=== PATIENT | female | born 1950 | race Caucasian/White ===

== ENCOUNTER → 2016-08-17 | Outpatient (CLI) | payer BC, OTHER ==
[~2016-08-17] MED LIST: OXYC-57 PO; TAMS0.4C38 PO; WARF5TAB90 PO
--- NOTE | 2016-08-17 14:42 | DIAGNOSTIC IMAGING REPORT ---
RIGHT FOOT MIN 3 VIEWS CLINICAL HISTORY: RIGHT FOOT PAIN Right pain COMPARISON: None. DISCUSSION: The bones and joint spaces appear intact. There is no evidence of fracture, dislocation or bony disease. There is no evidence for soft tissue swelling. IMPRESSION: Negative study. Electronically signed by: Roberto Cohn M.D. 08/17/2016 2:40 PM Dictated Date/Time: 08/17/2016 2:39 PM
== END | disposition home or self-care (01) ==
LOC: C.RDSM 14:28
PROVIDERS: ATTEND Internal Medicine
DX: M79.671 Pain in right foot (principal)

== ENCOUNTER 2018-01-30 19:39 | Emergency (ER) | payer BC, OTHER ==
[~2018-01-30] VITALS: Ht 157.5 cm; Wt 66.0 kg
[2018-01-30 19:44] VITALS: TEMP 36.5; Ht 157.5 cm; Wt 66.0 kg
[2018-01-30 20:23] LABS: HEMATOCRIT 39.8 % (37-47); HEMOGLOBIN 13.8 g/dL (12.0-16.0); MEAN CELL VOLUME 82.4 fL (80-100); MEAN CORPUSCULAR HEMOGLOBIN 28.6 pg (25-34); MEAN CORPUSCULAR HGB CONC 34.7 g/dl (32-36); MEAN PLATELET VOLUME 11.5 fL (7.4-10.4); PLATELET COUNT 267 K/uL (130-400); RED CELL DISTRIBUTION WIDTH CV 12.3 % (11.5-14.5); RED CELL DISTRIBUTION WIDTH SD 36.9 fL (36.4-46.3); WHITE BLOOD COUNT 8.63 K/uL (4.8-10.8)
--- NOTE | 2018-01-30 20:30 | DIAGNOSTIC IMAGING REPORT ---
HEAD WITHOUT CONTRAST (CT) CLINICAL HISTORY: 68 years-old Female presenting with dizziness/ slurred speech one hour ago. TECHNIQUE: Multidetector CT imaging of the head was performed without the use of intravenous contrast. IV contrast: None. A dose lowering technique was used consistent with the principles of ALARA (as low as reasonably achievable). COMPARISON: None. CT DOSE (mGy.cm): The estimated cumulative dose is 638.56 mGycm. FINDINGS: Senior Software Quality Engineer topogram: Unremarkable. Ventricles and sulci normal in size. Brain parenchyma normal in appearance with preserved barnes-white differentiation. No mass effect or midline shift. No hemorrhage or acute territorial infarct. No extra-axial fluid collection. Paranasal sinuses and mastoid air cells clear. Calvarium intact. IMPRESSION: 1. No acute intracranial abnormality. Electronically signed by: Quintin Chahal M.D. 01/30/2018 8:28 PM Dictated Date/Time: 01/30/2018 8:27 PM
[2018-01-30 20:34] LABS: INR 0.9 (0.9-1.1); PTT PATIENT 25.4 SECONDS (21.0-31.0)
--- NOTE | 2018-01-30 20:53 | EMERGENCY ROOM VISIT NOTE ---
History Report prepared by Adilson: Zuly Casas Under the Supervision of: Dr. Jose Payan M.D. First contact with patient: 20:20 Chief Complaint: DIZZY Stated Complaint: SUDDEN DIZZINESS, CHILLS, BLURRED VISION History of Present Illness The patient is a 68 year old female who presents to the Emergency Room with complaints of an episod eof severe dizziness beginning 1 hour and 20 minutes ago blurry, mouth dry, shaky, "slow motion" couldnt keep scooter open, laid scooter down, fell onto scooter couldnt get up Did not lose consciousness R eye felt twitchy Mild pressure at temples very naseous and disoriented still, vision resolved still dizzy/unsteady able to walk in fine denies weakness, numbness, or trouble speaking numbness in lips driving a motorized scooter down [address] when she had am extremely quick onset of blurred vision and dizziness 1 hour and 20 minutes ago. No speech issues, no stroke symptoms Dizzy, weak, blurred visions, cold chills Was on Coumadin following bad leg break and plate DVT, no medications dizziness worsens when moving head Denies any medical problems Never taken blood pressure medicine, BP usually on low side Source of History: patient, spouse/significant other Review of Systems See HPI for pertinent positives and negatives. A total of ten systems were reviewed and were otherwise negative. Past Medical & Surgical Medical Problems: (1) Osteoporosis Family History No pertinent family history stated. Social History Smoking Status: Never Smoker Smokeless Tobacco Use: No Alcohol Use: occasionally Drug Use: none Marital Status: Housing Status: lives with significant other Occupation Status: employed Current/Historical Medications Scheduled PRN Meclizine Hcl (Meclizine Hcl), 1 TAB PO TID PRN for Dizziness or Vertigo Allergies Coded Allergies: Penicillins (Verified Allergy, Intermediate, HIVES, 05/12/15) tolerated keflex and ancef no problem 2015 Physical Exam Vital Signs Date Time Temp Pulse Resp B/P (MAP) Pulse Ox O2 Delivery O2 Flow Rate FiO2 01/30/18 22:49 66 16 171/76 99 Room Air 01/30/18 20:53 66 18 176/80 98 Room Air 01/30/18 20:02 62 01/30/18 19:57 67 18 202/85 98 Room Air 01/30/18 19:44 36.5 62 20 202/75 98 Room Air Physical Exam GENERAL: Awake, alert, well-appearing, in no distress HENT: Normocephalic, atraumatic. Oropharynx unremarkable. EYES: Normal conjunctiva. Sclera non-icteric. NECK: Supple. No nuchal rigidity. RESPIRATORY: Clear to auscultation. No wheezes. Normal respiratory effort. CARDIAC: Normal rate. Normal rhythm. Extremities warm and well perfused. GI: Soft, non-distended. No tenderness to palpation. No rebound or guarding. No masses. RECTAL: Deferred. MUSCULOSKELETAL: Atraumatic. Chest examination reveals no tenderness. LOWER EXTREMITIES: Calves are equal size bilaterally and non-tender. No edema NEURO: Normal sensorium. No sensory or motor deficits noted. No facial droop. No aphasia, no dysarthria, no slurred speech, no ataxia. Cranial nerves 2-12 grossly intact. [place]-Hallpike negative. SKIN: Warm and dry. No rash or jaundice noted. Medical Decision & Procedures ER Provider Diagnostic Interpretation: Radiology results as stated below per my review and radiologist interpretation: HEAD WITHOUT CONTRAST (CT) CLINICAL HISTORY: 68 years-old Female presenting with dizziness/ slurred speech one hour ago. TECHNIQUE: Multidetector CT imaging of the head was performed without the use of intravenous contrast. IV contrast: None. A dose lowering technique was used consistent with the principles of ALARA (as low as reasonably achievable). COMPARISON: None. CT DOSE (mGy.cm): The estimated cumulative dose is 638.56 mGycm. FINDINGS: Records Tech topogram: Unremarkable. Ventricles and sulci normal in size. Brain parenchyma normal in appearance with preserved barnes-white differentiation. No mass effect or midline shift. No hemorrhage or acute territorial infarct. No extra-axial fluid collection. Paranasal sinuses and mastoid air cells clear. Calvarium intact. IMPRESSION: 1. No acute intracranial abnormality. Electronically signed by: Quintin Chahal M.D. 01/30/2018 8:28 PM Dictated Date/Time: 01/30/2018 8:27 PM MRA NECK COMBO CLINICAL HISTORY: 68 years-old Female presenting with dizziness, nausea, blurred vision, headache, symptoms began this evening, fall but no head trauma. TECHNIQUE: MR angiography of the neck was performed before and after the administration of intravenous contrast. 3-D volumetric and/or maximum intensity projection (MIP) images were subsequently reconstructed for review. IV contrast: 6.6 mL of Gadavist. Stenosis measurements were based on NASCET-like criteria. COMPARISON: None. FINDINGS: Image quality is limited by suboptimal postcontrast imaging. The contrast bolus was not directed despite a second attempt at injection. Angiography assessment made based on noncontrast imaging. Localizer images: Unremarkable. Aortic arch: Not included within the [id number]. Innominate artery: Grossly patent. Right common carotid artery: Patent. Right internal and external carotid arteries: Right carotid bifurcation patent. Right internal and external carotid arteries widely patent. Left common carotid artery: Patent. Left internal and external carotid arteries: Left carotid bifurcation patent. Left internal and external carotid arteries widely patent. Left subclavian artery: Grossly patent. Vertebral arteries: Codominant vertebral arteries. Origins of the vertebral arteries not well assessed. Remainder of the courses of the bilateral vertebral arteries grossly patent. Other: Limited intracranial evaluation grossly normal. IMPRESSION: 1. Technique degraded by nondiagnostic postcontrast imaging. Based on noncontrast imaging, no dissection, significant stenosis, or focal vessel occlusion. Electronically signed by: Quintin Chahal M.D. 01/30/2018 10:34 PM Dictated Date/Time: 01/30/2018 10:29 PM MRA HEAD WITHOUT CONTRAST CLINICAL HISTORY: 68 years-old Female presenting with dizziness, nausea, blurred vision, headache, symptoms began this evening, fall without head trauma. TECHNIQUE: MR angiography of the head was performed without the use of intravenous contrast using 3-D [id number] technique. 3-D volumetric and/or maximum intensity projection (MIP) images were subsequently reconstructed for review. IV contrast: None. COMPARISON: Noncontrast CT head from earlier today. FINDINGS: Anterior circulation: Intracranial portions of the internal carotid arteries patent to the level of the termini. A laterally projecting 1 mm blister aneurysm is suspected in the paraclinoid region of the right ICA with an additional similar-appearing 1 mm blister aneurysm in the cavernous segment. Anterior and middle cerebral arteries patent. Anterior communicating artery patent. Posterior circulation: Left dominant vertebral artery. Intradural portions of the vertebral arteries patent. Posterior inferior cerebellar arteries patent. Basilar artery patent. Anterior inferior cerebellar arteries patent. Right superior cerebellar artery patent. Left superior cerebellar artery hypoplastic or aplastic. Posterior cerebral arteries patent patent with a origin of the left PUBLISHING EDITOR. Right posterior communicating artery hypoplastic. IMPRESSION: 1. 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 These are of doubtful clinical significance regarding the patient's presentation. No focal vessel occlusion or significant stenosis. Electronically signed by: Quintin Chahal M.D. 01/30/2018 10:03 PM Dictated Date/Time: 01/30/2018 9:58 PM BRAIN WITHOUT CONTRAST CLINICAL HISTORY: 68 years-old Female presenting with dizziness/vertigo, sudden onset. TECHNIQUE: Multisequence, multiplanar MR imaging of the brain was performed without the use of intravenous contrast. IV contrast: None. COMPARISON: Noncontrast MR head performed earlier today. FINDINGS: Localizer images: Unremarkable. Ventricles and sulci normal in size. Brain parenchyma normal in appearance with preserved barnes-white differentiation. No mass effect or midline shift. No restricted diffusion to suggest acute ischemia. No hemorrhage. No extra-axial fluid collection. T2 skull base flow voids preserved. Postcontrast imaging was not performed. Bone marrow signal intensity within the calvarium within normal limits. Trace fluid in right mastoid air cells. IMPRESSION: 1. No acute intracranial abnormality. Electronically signed by: Quintin Chahal M.D. 01/30/2018 10:08 PM Dictated Date/Time: 01/30/2018 10:05 PM Laboratory Results 01/30/18 20:04 01/30/18 20:04 Test 01/30/18 20:04 01/30/18 22:57 Red Blood Count 4.83 M/uL (4.2-5.4) Mean Corpuscular Volume 82.4 fL (80-100) Mean Corpuscular Hemoglobin 28.6 pg (25-34) Mean Corpuscular Hemoglobin Concent 34.7 g/dl (32-36) RDW Standard Deviation 36.9 fL (36.4-46.3) RDW Coefficient of Variation 12.3 % (11.5-14.5) Mean Platelet Volume 11.5 fL (7.4-10.4) Prothrombin Time 9.8 SECONDS (9.0-12.0) Prothromb Time International Ratio 0.9 (0.9-1.1) Activated Partial Thromboplast Time 25.4 SECONDS (21.0-31.0) Partial Thromboplastin Ratio 1.0 Anion Gap 8.0 mmol/L (3-11) Est Creatinine Clear Calc Drug Dose 53.0 ml/min Estimated GFR () 74.2 Estimated GFR (Non- 64.0 BUN/Creatinine Ratio 24.2 (10-20) Calcium Level 9.6 mg/dl (8.5-10.1) Total Bilirubin 0.4 mg/dl (0.2-1) Aspartate Amino Transf (AST/SGOT) 20 U/L (15-37) Alanine Aminotransferase (ALT/SGPT) 37 U/L (12-78) Alkaline Phosphatase 85 U/L (45-117) Troponin I < 0.015 ng/ml (0-0.045) Total Protein 8.5 gm/dl (6.4-8.2) Albumin 4.2 gm/dl (3.4-5.0) Globulin 4.3 gm/dl (2.5-4.0) Albumin/Globulin Ratio 1.0 (0.9-2) Thyroid Stimulating Hormone (TSH) 2.380 uIu/ml (0.300-4.500) Urine Color YELLOW Urine Appearance CLEAR (CLEAR) Urine pH 7.0 (4.5-7.5) Urine Specific [place] 1.019 (1.000-1.030) Urine Protein NEG (NEG) Urine Glucose (UA) NEG (NEG) Urine Ketones 1+ (NEG) Urine Occult Blood NEG (NEG) Urine Nitrite NEG (NEG) Urine Bilirubin NEG (NEG) Urine Urobilinogen NEG (NEG) Urine Leukocyte Esterase SMALL (NEG) Urine WBC (Auto) 1-5 /hpf (0-5) Urine RBC (Auto) 0-4 /hpf (0-4) Urine Hyaline Casts (Auto) 0 /lpf (0-5) Urine Epithelial Cells (Auto) 10-20 /lpf (0-5) Urine Bacteria (Auto) NEG (NEG) Laboratory results reviewed by me Medications Administered Medications (Trade) Dose Ordered Sig/Sunita Route Start Time Stop Time Status Last Admin Dose Admin Meclizine HCl (Antivert Tab) 25 mg NOW STAT PO 01/30/18 21:25 01/30/18 21:26 DC 01/30/18 22:56 25 MG ECG Per My Interpretation Indication: other (hypertension) Rate (beats per minute): 63 Rhythm: normal sinus Findings: no ectopy, other (normal intervals. no ST segment elevation ) Comparison ECG Date: 04/29/15 Change: no significant change ED Course 2020: The patient was evaluated in room B7. A complete history and physical exam was performed. 2124: Ordered Meclizine HCl 25 mg PO. 2131: I attempted to reevaluate the patient, they were in MRI. 2140: I reevaluated and update the patient. 2304: I reevaluated the patient. Discussed results and discharge instructions: she verbalized understanding and agreement. The patient is ready for discharge. Medical Decision Differential diagnosis: Etiologies such as benign positional vertigo, dehydration, hypovolemia, anemia, tumor, infection, hypoglycemia, electrolyte abnormalities, cardiac sources, intracerebral event, toxicologic, neurologic, as well as others were entertained. Patient presents with sudden onset of dizziness with nausea earlier. No trauma. Normal blood thinners or aspirin. CT the head is unremarkable. No focal weakness. Does not seem to be acute stroke but possibly hypertension emergency versus TIA. Non-provocable symptoms. Less likely peripheral vertigo. Onset around 7 PM. NIH of 0 now. Could be a possible small stroke and MRI MRA of the brain was completed. Not a TPA candidate due to minimal symptoms now. Laboratory studies grossly unremarkable. MRI and MRA without acute findings when her symptoms. She was informed of the small aneurysm noted on the MRA-do not believe related to issue now. She is feeling improved upon return from MRI with minimal symptoms. Ambulatory here. Eating and drinking. Blood pressure improving. Does not seem consistent with stroke. We will give some Antivert for possible peripheral vertigo. Recent URI and could be related viral labyrinthitis. She is feeling improved and wished for discharge home. Feel this is reasonable. Doubt hypertensive emergency. Recommend follow-up in the next several days with her primary care physician to discuss her blood pressure (may have been situational) and this episode. Discussed return criteria and she is agreeable with this. Medication Reconcilliation Current Medication List: was personally reviewed by me Blood Pressure Screening Patient's blood pressure: Elevated blood pressure Blood pressure disposition: Referred to PCP Impression Primary Impression: Dizziness Additional Impression: Vertigo Scribe Attestation The scribe's documentation has been prepared under my direction and personally reviewed by me in its entirety. I confirm that the note above accurately reflects all work, treatment, procedures, and medical decision making performed by me. Departure Information Dispostion Home / Self-Care Prescriptions Meclizine Hcl (MECLIZINE HCL) 25 Mg Tab 1 TAB PO TID Y for Dizziness or Vertigo for 10 Days, #30 TAB Prov: Jose Payan M.D. 01/30/18 Referrals No Doctor, Assigned (PCP) Forms HOME CARE DOCUMENTATION FORM, IMPORTANT VISIT INFORMATION Patient Instructions My [facility] [place] [facility] Additional Instructions Please maintain good hydration. If you begin to experience severe symptoms, please sit down to prevent falls or other accidents. Would recommend close follow-up in the next several days with your primary care physician. Would also discuss with them your blood pressure which has been elevated today but have a recheck to see if this is a continual issue. Will prescribe you some vertigo medicine that you can try if you have recurrence of symptoms. Imaging today does not show any signs of an acute stroke or brain lesion. However if you develop new or worsening symptoms please return here for reevaluation at any time. Problem Qualifiers
[2018-01-30 21:03] LABS: ALBUMIN 4.2 gm/dl (3.4-5.0); ALKALINE PHOSPHATASE 85 U/L (45-117); ALT/SGPT 37 U/L (12-78); AST/SGOT 20 U/L (15-37); BLOOD UREA NITROGEN 22 mg/dl (7-18); CALCIUM 9.6 mg/dl (8.5-10.1); CARBON DIOXIDE 26 mmol/L (21-32); CREATININE 0.93 mg/dl (0.60-1.20); GLUCOSE 107 mg/dl (70-99); POTASSIUM 3.9 mmol/L (3.5-5.1); SODIUM 138 mmol/L (136-145); TOTAL PROTEIN 8.5 gm/dl (6.4-8.2)
[2018-01-30] MEDS ORDERED: MECLIZINE HCL 25 MG TAB PO STA (21:25)
--- NOTE | 2018-01-30 22:04 | DIAGNOSTIC IMAGING REPORT ---
MRA HEAD WITHOUT CONTRAST CLINICAL HISTORY: 68 years-old Female presenting with dizziness, nausea, blurred vision, headache, symptoms began this evening, fall without head trauma. TECHNIQUE: MR angiography of the head was performed without the use of intravenous contrast using 3-D [id number] technique. 3-D volumetric and/or maximum intensity projection (MIP) images were subsequently reconstructed for review. IV contrast: None. COMPARISON: Noncontrast CT head from earlier today. FINDINGS: Anterior circulation: Intracranial portions of the internal carotid arteries patent to the level of the termini. A laterally projecting 1 mm blister aneurysm is suspected in the paraclinoid region of the right ICA with an additional similar-appearing 1 mm blister aneurysm in the cavernous segment. Anterior and middle cerebral arteries patent. Anterior communicating artery patent. Posterior circulation: Left dominant vertebral artery. Intradural portions of the vertebral arteries patent. Posterior inferior cerebellar arteries patent. Basilar artery patent. Anterior inferior cerebellar arteries patent. Right superior cerebellar artery patent. Left superior cerebellar artery hypoplastic or aplastic. Posterior cerebral arteries patent patent with a origin of the left MICROBIOLOGY TECHNICIAN. Right posterior communicating artery hypoplastic. IMPRESSION: 1. 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 These are of doubtful clinical significance regarding the patient's presentation. No focal vessel occlusion or significant stenosis. Electronically signed by: Quintin Chahal M.D. 01/30/2018 10:03 PM Dictated Date/Time: 01/30/2018 9:58 PM
--- NOTE | 2018-01-30 22:09 | DIAGNOSTIC IMAGING REPORT ---
BRAIN WITHOUT CONTRAST CLINICAL HISTORY: 68 years-old Female presenting with dizziness/vertigo, sudden onset. TECHNIQUE: Multisequence, multiplanar MR imaging of the brain was performed without the use of intravenous contrast. IV contrast: None. COMPARISON: Noncontrast MR head performed earlier today. FINDINGS: Localizer images: Unremarkable. Ventricles and sulci normal in size. Brain parenchyma normal in appearance with preserved barnes-white differentiation. No mass effect or midline shift. No restricted diffusion to suggest acute ischemia. No hemorrhage. No extra-axial fluid collection. T2 skull base flow voids preserved. Postcontrast imaging was not performed. Bone marrow signal intensity within the calvarium within normal limits. Trace fluid in right mastoid air cells. IMPRESSION: 1. No acute intracranial abnormality. Electronically signed by: Quintin Chahal M.D. 01/30/2018 10:08 PM Dictated Date/Time: 01/30/2018 10:05 PM
[2018-01-30] MEDS ORDERED: GADAVIST IV PRN (22:30)
--- NOTE | 2018-01-30 22:35 | DIAGNOSTIC IMAGING REPORT ---
MRA NECK COMBO CLINICAL HISTORY: 68 years-old Female presenting with dizziness, nausea, blurred vision, headache, symptoms began this evening, fall but no head trauma. TECHNIQUE: MR angiography of the neck was performed before and after the administration of intravenous contrast. 3-D volumetric and/or maximum intensity projection (MIP) images were subsequently reconstructed for review. IV contrast: 6.6 mL of Gadavist. Stenosis measurements were based on NASCET-like criteria. COMPARISON: None. FINDINGS: Image quality is limited by suboptimal postcontrast imaging. The contrast bolus was not directed despite a second attempt at injection. Angiography assessment made based on noncontrast imaging. Localizer images: Unremarkable. Aortic arch: Not included within the [id number]. Innominate artery: Grossly patent. Right common carotid artery: Patent. Right internal and external carotid arteries: Right carotid bifurcation patent. Right internal and external carotid arteries widely patent. Left common carotid artery: Patent. Left internal and external carotid arteries: Left carotid bifurcation patent. Left internal and external carotid arteries widely patent. Left subclavian artery: Grossly patent. Vertebral arteries: Codominant vertebral arteries. Origins of the vertebral arteries not well assessed. Remainder of the courses of the bilateral vertebral arteries grossly patent. Other: Limited intracranial evaluation grossly normal. IMPRESSION: 1. Technique degraded by nondiagnostic postcontrast imaging. Based on noncontrast imaging, no dissection, significant stenosis, or focal vessel occlusion. Electronically signed by: Quintin Chahal M.D. 01/30/2018 10:34 PM Dictated Date/Time: 01/30/2018 10:29 PM
[2018-01-30 22:49] VITALS: BP 171/76; PULSE 66; O2SAT 99
[2018-01-30] MEDS ORDERED: MECL1TAB42 PO (22:58)
== END 2018-01-30 23:10 | disposition home or self-care (01) ==
LOC: C.EDB 19:40
DX: R42 Dizziness and giddiness (principal); M81.0 Age-related osteoporosis without current pathological fracture; Z88.0 Allergy status to penicillin

== ENCOUNTER 2022-09-12 11:47 | Observation (INO) ==
--- NOTE | 2022-09-12 12:18 | Electrocardiogram Report ---
Test Reason : Blood Pressure : / mmHG Vent. Rate : 064 BPM Atrial Rate : 064 BPM P-R Int : 146 ms QRS Dur : 070 ms QT Int : 428 ms P-R-T Axes : 034 014 036 degrees QTc Int : 441 ms Normal sinus rhythm Diffuse Minor Nonspecific ST abnormality Abnormal ECG When compared with ECG of 30-JAN-2018 19:55, ST now depressed in Anterior leads Confirmed by Hector Valdes ([id number]) on 09/12/2022 12:18:20 PM Referred By: Confirmed By:Hector Valdes
[2022-09-12 12:41] LABS: Basophils # (auto) 0.11 K/uL (0-0.2); Hemoglobin 13.6 g/dl (12.0-16.0); Immature Granulocytes # (auto) 0.03 K/uL (0.01-0.20); Immature Granulocytes % (auto) 0.3 %; Lymphocytes # (auto) 2.11 K/uL (1.2-3.4); Lymphocytes % (auto) 19.2 %; Mean Corpuscular Hemoglobin 27.5 pg (25.0-34.0); Mean Corpuscular Hgb Conc 33.2 g/dL (32.0-36.0); Mean Corpuscular Volume 82.8 fL (80.0-100.0); Monocytes # (auto) 0.53 K/uL (0.11-0.59); Monocytes % (auto) 4.8 %; Neutrophils # (auto) 8.22 K/uL (1.40-6.50); Neutrophils % (auto) 74.7 %; Platelet Count 279 K/uL (130-400); RDW Coefficient of Variation 12.6 % (11.5-14.5); RDW Standard Deviation 38.4 fL (36.4-46.3); Red Blood Count 4.95 M/uL (4.20-5.40)
[2022-09-12 12:55] LABS: Albumin Level 4.4 gm/dl (3.4-5.0); Bilirubin,Total 0.5 mg/dl (0.2-1.0); Calcium 9.6 mg/dl (8.6-10.3); Partial Thromboplastin Time 28.1 Seconds (21.0-31.0); Potassium 4.1 mmol/L (3.5-5.1); Prothrombin Time 10.3 Seconds (9.0-12.0)
[2022-09-12 13:01] LABS: Albumin Globulin Ratio 1.3 (0.9-2); BUN Creatinine Ratio 15.6 (10-20); Creatinine Clr Calc Pharmacy 50.3 ml/min; Est GFR (African American) 75.1 ml/min; Est GFR (Non-African American) 64.8 ml/min; Globulin 3.5 gm/dl (2.5-4.0); Total Protein 7.9 gm/dl (6.0-8.3)
[2022-09-12 13:25] LABS: Troponin I High Sensitivity 416.9 pg/ml (0-14)
--- NOTE | 2022-09-12 13:31 | XRay Report ---
TWO VIEW CHEST CLINICAL HISTORY: Atypical chest pain. FINDINGS: PA and lateral chest radiographs are compared to study dated 08/17/2012. The cardiomediastina l silhouette is unremarkable. Chronic interstitial thickening is unchanged. The lungs and pleural sp aces are clear. There is no pneumothorax. The skeletal structures are osteopenic. The bony thorax carlos ears intact. Arthritic change is seen in the shoulders. IMPRESSION: No active disease in the chest. ACT 112: Negative or not required by law. Electronically signed by: Marcus Senior M.D. 09/12/2022 1:29 PM
--- NOTE | 2022-09-12 13:53 | Emergency Department Note ---
ED Visit Note Patient was triaged prior to this PA being stationed in triage for the day. Troponin was noted to be elevated and ECG was reviewed by myself and Dr. Santizo. Patient will be immediately placed into room and seen by provider. Repeat ECG and troponin were ordered. -
[2022-09-12] MEDS ORDERED: SODIUM CHLORIDE 0.9% 1000ML 1,000 ML IV ONE (14:05)
[2022-09-12] MEDS ORDERED: ASPIRIN CHEW 324 MG PO STA (14:05)
[2022-09-12] MEDS ORDERED: NITROGLYCERIN SL 0.4 MG/TAB TAB SL STA ×2 (14:05→16:46)
[2022-09-12] MEDS ORDERED: OPTIRAY 320 500ml IV ONE (14:27)
--- NOTE | 2022-09-12 15:15 | Electrocardiogram Report ---
Test Reason : Blood Pressure : / mmHG Vent. Rate : 062 BPM Atrial Rate : 062 BPM P-R Int : 156 ms QRS Dur : 078 ms QT Int : 452 ms P-R-T Axes : 062 006 028 degrees QTc Int : 458 ms Poor data quality, interpretation may be adversely affected Normal sinus rhythm Voltage criteria for left ventricular hypertrophy Diffuse Nonspecific ST abnormality Abnormal ECG When compared with ECG of 12-SEP-2022 11:58, No significant change was found Confirmed by Hector Valdes ([id number]) on 09/12/2022 3:15:00 PM Referred By: Confirmed By:Hector Valdes
--- NOTE | 2022-09-12 15:16 | CT Scan Report ---
CT ANGIOGRAM OF THE CHEST CLINICAL HISTORY: Atypical chest pain. COMPARISON STUDY: Chest x-ray dated 09/12/2022. TECHNIQUE: Following the IV administration of 107 cc of Optiray 320, CT angiogram of the chest was pe rformed from the upper abdomen to the thoracic inlet utilizing the pulmonary embolus protocol. Images are reviewed in the axial, sagittal, and coronal planes. 3-D MIPS images are created and assessed. I V contrast was administered without complication. A dose lowering technique was utilized adhering to the principles of ALARA. CT DOSE: 264.11 mGy.cm FINDINGS: Thyroid: Normal in size and heterogeneous in attenuation. Thoracic aorta: There is moderate atherosclerotic calcification of the thoracic aorta, which is thomas l in caliber and demonstrates standard 3-vessel arch anatomy. No dissection is seen. Pulmonary vasculature: The pulmonary trunk is normal in caliber. There are no filling defects identif ied in main, lobar, or segmental pulmonary branches to suggest pulmonary embolus. Heart: The heart is normal in size and without pericardial effusion. There are scattered coronary art adria calcifications. Lungs and pleural spaces: Diffuse peribronchial thickening suggests bronchitis/reactive air disease. Foci of air trapping are seen throughout both lungs. Mild groundglass changes noted at the right lung base. There is no pleural effusion. The trachea and central airways are clear. A 6 mm pleural-based nodule is seen in the superior segment of the right lower lobe along the major fissure on image #160. A 5 mm nodule in the lingula as seen on image #133, and a 3 mm pleural-based nodule in the left lowe r lobe along the major fissure as seen on image #180. Mediastinum: There is no mediastinal lymphadenopathy. Starr: There are calcified left hilar nodes. No hilar adenopathy is seen. Axillae: There is no axillary lymphadenopathy. Upper abdomen: A small hiatal hernia is noted. 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 Skeletal structures: The skeletal structures are osteopenic. Mild degenerative change is noted in the thoracic spine. No lytic or blastic bony lesions are seen. IMPRESSION: 1. There is no evidence of pulmonary embolus in the main, lobar, or segmental pulmonary arteries. 2. Diffuse peribronchial thickening suggests bronchitis/reactive airway disease. There is multifocal air trapping as well as mild groundglass change seen at the right lung base. Correlate clinically for evidence of a pneumonitis. 3. No pleural effusion is seen. 4. Low suspicion pulmonary and pleural-based nodules measure up to 6 mm. These are indeterminant and can be followed as per the Fleischner criteria. See below. 5. Additional findings as above. Please refer to below summary of Fleischner criteria recommendations for follow-up of incidental CT n odules (Kimberlee Law, Guidelines for management of small pulmonary nodules detected on CT scans: A sta tement from the Fleischner Society, Radiology 237: [phone].) SOLID NODULES Solitary nodule size: <6 mm * low risk patients: no follow-up needed * high risk patients: optional CT at 12 months Solitary nodule size: 6-8 mm * low risk patients: follow-up at 6-12 months, then consider further follow-up at 18-24 months * high risk patients: initial follow-up CT at 6-12 months and then at 18-24 months if no change Solitary nodule size: >8 mm * either low or high risk patients - consider follow-up CT at 3 months, and/or CT-PET, and/or biopsy Multiple nodules size: <6 mm * low risk patients: no routine follow-up * high risk patients: optional CT at 12 months Multiple nodules size: 6-8 mm * low risk patients: follow-up at 3-6 months, then consider further follow-up at 18-24 months * high risk patients: follow-up at 3-6 months, then at 18-24 months if no change Multiple nodules size: >8 mm * low risk patients: follow-up at 3-6 months, then consider further follow-up at 18-24 months * high risk patients: follow-up at 3-6 months, then at 18-24 months if no change Note: newly detected indeterminate nodule in persons 35 years of age or older. * low risk patients: minimal or absent history of smoking and/or other known risk factors * high risk patients: history of smoking or of other known risk factors (e.g. first degree relative with lung cancer, or exposure to asbestos, radon, uranium) * if a nodule up to 8 mm is partly solid or is ground glass further follow-up is required after 24 m onths to exclude possible slow growing adenocarcinoma (LUCY) SUBSOLID NODULES Solitary pure ground-glass nodule * nodule size <6 mm - no CT follow-up required * nodule size >=6 mm - follow-up CT at 6-12 months, then every 2 years until 5 years Solitary part-solid nodule * nodule size <6 mm - no CT follow-up required * nodule size >=6 mm - follow-up CT at 3-6 months. If unchanged, and solid component remains <6 mm, then annual follow-up for 5 years Multiple subsolid nodules * nodule size <6 mm - follow-up CT at 3-6 months, consider further follow-up at 2 and 4 years if sta ble * nodule size >=6 mm - follow-up CT at 3-6 months, subsequent management based on the most suspiciou s nodule(s) ACT 112: Negative or not required by law. Electronically signed by: Marcus Senior M.D. 09/12/2022 3:15 PM
[2022-09-12] MEDS ORDERED: Heparin IV Adult Wt-Based Low-Dose WITH Bolus Protocol IV STA (16:46)
--- NOTE | 2022-09-12 16:55 | Emergency Department Note ---
Impression & Plan Substernal chest pain, Elevated troponin, Elevated blood pressure reading, Abnormal EKG, Aneurysm of splenic artery ED Provider Note NAME: CHUY SHEPARD AGE: 72 SEX: F ARRIVES VIA: Walk-In INFORMANT: Patient ED PROVIDER(S): Antoni Santizo MD CHIEF COMPLAINT: Chest pain PLAN: Disposition: Admit MEDICAL DECISION MAKING: The patient is a pleasant 72-year-old woman with a past medical history of remote provoked DVT no longer on anticoagulation who presents to the emergency department accompanied by her for evaluation of 2 days of ongoing substernal chest pain/pressure worse with exertion with associated shortness of breath. The patient symptoms occur in the setting of recently starting Ibandronate for osteoporosis and she initially attributed the symptoms to indigestion related to this medication as her symptoms did show some improvement with Pepto-Bismol. However she is never experienced shortness of breath with minimal exertion she has and they were concerned. She denies any fevers, chills, new cough or congestion, GI or symptoms. They did both have COVID-19 in April but recovered uneventfully. Of note, the patient did arrive to emergency department during time of high volume, acuity and prolonged emergency department waiting times. Critical pathways initiated from triage. Initial EKG performed in triage did not demonstrate overt ST elevation though very subtle depressed ST segments anteriorly. WBC 11K nonspecific. H/H and platelets within normal limits. Chemistry without metabolic acidosis. Electrolytes and LFTs unremarkable. Initial high- sensitivity troponin was elevated at 416 with delta 2-hour high-sensitivity troponin 430. COVID-19 RNA, BETH test was negative. Patient was treated with aspirin and nitroglycerin and did report feeling the residual sensation of "indigestion" resolved. Given her history a CTA of the chest was performed and was negative for PE. Note is made of peribronchial thickening which may reflect residual findings related to COVID-19 infection in April incidental note is made of small splenic artery aneurysms.. Given her symptoms which are provoked with exertion with elevated troponin and subtle EKG changes heparin was ordered. The patient denies any prior history of GI bleeding or bleeding otherwise. They agree with plan for admission for further management. Case was discussed with Edith Yañez PAC with Dr. Singletary, [facility] hospitalist, who will evaluate the patient for admission. Triage Nursing notes reviewed and agree them. Prior/outside medical records reviewed Vital Signs: reviewed Differential diagnosis: Cardiac ischemia, aortic dissection, pulmonary embolism, pneumothorax, pneumonia, pericarditis, myocarditis, esophageal rupture, GERD, cholecystitis, pancreatitis, musculoskeletal, as well as other pathologies. ER treatment provided: See below. Diagnostics interpreted by me: ECG: Normal sinus rhythm, 64 bpm, no ectopy, subtle ST depression anteriorly no overt ST elevation. Cardiac Monitoring: An order for continuous cardiac monitoring was placed and demonstrated Normal sinus rhythm, 64 bpm, no ectopy. Laboratory studies: See below Imaging studies: See below Consultation(s): Edith Zacarias [facility] PAC with Dr. Singletary, [facility] hospitalist. HPI: The patient is a pleasant 72-year-old woman with a past medical history of remote provoked DVT no longer on anticoagulation who presents to the emergency department accompanied by her for evaluation of 2 days of ongoing substernal chest pain/pressure worse with exertion with associated shortness of breath. The patient symptoms occur in the setting of recently starting Ibandronate for osteoporosis and she initially attributed the symptoms to indigestion related to this medication as her symptoms did show some improvement with Pepto-Bismol. However she is never experienced shortness of breath with minimal exertion she has and they were concerned. She denies any fevers, chills, new cough or congestion, GI or symptoms. They did both have COVID-19 in April but recovered uneventfully. ROS: See above HPI for pertinent positives & negatives. A total of 10 systems reviewed and were otherwise negative. VITALS:See Below PHYSICAL EXAMINATION: GENERAL: Awake, alert, well-appearing, in no distress HENT: Normocephalic, atraumatic. Oropharynx with dry mucous membranes and otherwise unremarkable. EYES: Normal conjunctiva. Sclera non-icteric. NECK: Supple. No nuchal rigidity. FROM. No JVD. RESPIRATORY: Clear to auscultation. CARDIAC: Regular rate, normal rhythm. Extremities warm and well perfused. Pulses equal. ABDOMEN: Soft, non-distended. No tenderness to palpation. No rebound or guarding. No masses. RECTAL: Deferred. MUSCULOSKELETAL: Chest examination reveals no tenderness. The back is symmetrical on inspection without obvious abnormality. There is no CVA tenderness to palpation. No joint edema. LOWER EXTREMITIES: Calves are equal size bilaterally and non-tender. No edema. No discoloration. NEURO: Normal sensorium. No sensory or motor deficits noted. SKIN: No rash or jaundice noted. ED COURSE: Critical Care: I have personally spent greater than 75 minutes of critical care time in the direct management of this patient. This includes bedside care, interpretation of diagnostic studies, and testing, discussion with consultants, patient, and family members, and other required patient management activities. This 75 minutes is in excess of all separately billable procedures. 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; no previous echo History of DVT (deep vein thrombosis) x 2 2012 post op History of osteoporosis History of renal stone HLD (hyperlipidemia) Surgical History History of colonoscopy History of cystoscopy with stone extraction History of esophagogastroduodenoscopy (EGD) History of open reduction and internal fixation (ORIF) procedure RLE History of wisdom tooth extraction Family History Other No family history of adverse response to anesthesia Social History Smoking Status: Former smoker Second Hand Exposure: No; Hx Alcohol Use: No Hx Substance Use: No Preferred Language: [place] Communication Ability: Effective Shop Girl Required: No Beliefs That Will Affect Care: None Current Living Situation: Spouse Feels Safe at Home: Yes Assistive Devices: Crutches and Glasses Allergies Allergies Allergy/AdvReac Type Severity Reaction Status Date / Time Penicillins Allergy Intermediate HIVES Verified 09/12/22 17:08 Home Meds Home Medications Medication Instructions Recorded Confirmed atorvastatin 10 mg tablet 10 mg PO DAILY 09/12/22 09/12/22 ibandronate 150 mg tablet 150 mg PO MONTHLY 09/12/22 09/12/22 Results & Data (ED) Vital Signs Vital Signs - 24 hr 09/12/22 11:50 09/12/22 14:13 09/12/22 14:02 Temperature 36.8 C Temperature Source Temporal Artery Scan Pulse Rate 62 65 63 Pulse Rate from SpO2 Sensor Respiratory Rate 18 17 Blood Pressure 180/84 H Blood Pressure Mean 116 Pulse Oximetry 99 Oxygen Delivery Method Room Air Sepsis Recent Fever Within 48 Hours No Sepsis New/Unexplained Change in Mental Status No Sepsis Action Taken by Nursing No Action Required 09/12/22 14:43 09/12/22 14:43 09/12/22 15:00 Temperature Temperature Source Pulse Rate Pulse Rate from SpO2 Sensor 63 Respiratory Rate Blood Pressure 191/86 H 194/78 H Blood Pressure Mean 121 116 Pulse Oximetry 95 Oxygen Delivery Method Sepsis Recent Fever Within 48 Hours Sepsis New/Unexplained Change in Mental Status Sepsis Action Taken by Nursing 09/12/22 15:00 09/12/22 15:30 09/12/22 15:30 Temperature Temperature Source Pulse Rate 62 61 Pulse Rate from SpO2 Sensor 63 61 Respiratory Rate 15 24 Blood Pressure 187/93 H Blood Pressure Mean 124 Pulse Oximetry 98 96 Oxygen Delivery Method Sepsis Recent Fever Within 48 Hours Sepsis New/Unexplained Change in Mental Status Sepsis Action Taken by Nursing 09/12/22 16:00 09/12/22 16:00 09/12/22 16:00 Temperature Temperature Source Pulse Rate 67 Pulse Rate from SpO2 Sensor 67 Respiratory Rate 24 Blood Pressure 208/66 H 208/66 H Blood Pressure Mean 113 113 Pulse Oximetry 98 Oxygen Delivery Method Sepsis Recent Fever Within 48 Hours Sepsis New/Unexplained Change in Mental Status Sepsis Action Taken by Nursing 09/12/22 16:34 09/12/22 16:52 09/12/22 16:52 Temperature Temperature Source Pulse Rate 79 65 Pulse Rate from SpO2 Sensor 66 65 Respiratory Rate 23 29 H Blood Pressure 200/70 H Blood Pressure Mean 113 Pulse Oximetry 88 L 98 Oxygen Delivery Method Sepsis Recent Fever Within 48 Hours Sepsis New/Unexplained Change in Mental Status Sepsis Action Taken by Nursing 09/12/22 17:00 09/12/22 17:00 Temperature Temperature Source Pulse Rate 77 Pulse Rate from SpO2 Sensor 75 Respiratory Rate 30 H Blood Pressure 157/78 H Blood Pressure Mean 104 Pulse Oximetry 95 Oxygen Delivery Method Sepsis Recent Fever Within 48 Hours Sepsis New/Unexplained Change in Mental Status Sepsis Action Taken by Nursing Laboratory Data 09/12/22 12:00 09/12/22 12:00 Lab Results 09/12/22 09/12/22 09/12/22 Range/Units 12:00 12:00 12:00 WBC 11.00 H (4.8-10.8) K/ul RBC 4.95 (4.20-5.40) M/uL Hgb 13.6 (12.0-16.0) g/dl Hct 41.0 (37.0-47.0) % MCV 82.8 (80.0-100.0) fL MCH 27.5 (25.0-34.0) pg MCHC 33.2 (32.0-36.0) g/dL RDW Std Deviation 38.4 (36.4-46.3) fL RDW Coeff of David 12.6 (11.5-14.5) % Plt Count 279 (130-400) K/uL MPV 12.0 (9.4-12.4) fL Immature Gran % (Auto) 0.3 % Neut % (Auto) 74.7 % Lymph % (Auto) 19.2 % [place] % (Auto) 4.8 % Eos % (Auto) 0.0 % Baso % (Auto) 1.0 % Neut # (Auto) 8.22 H (1.40-6.50) K/uL Lymph # (Auto) 2.11 (1.2-3.4) K/uL [place] # (Auto) 0.53 (0.11-0.59) K/uL Eos # (Auto) 0.00 (0-0.50) K/uL Baso # (Auto) 0.11 (0-0.2) K/uL Immature Gran # (Auto) 0.03 (0.01-0.20) K/uL PT 10.3 (9.0-12.0) Seconds INR 1.0 (0.9-1.1) APTT 28.1 (21.0-31.0) Seconds PTT Ratio 1.0 Sodium 135 L (136-145) mmol/L Potassium 4.1 (3.5-5.1) mmol/L Chloride 102 (98-107) mmol/L Carbon Dioxide 25 (21-32) mmol/L Anion Gap 8 (3-11) BUN 14 (6-23) mg/dl Creatinine 0.90 (0.6-1.2) mg/dl Est Cr Clr Drug Dosing 50.3 ml/min Est GFR ( Amer) 75.1 ml/min Est GFR (Non-Af Amer) 64.8 ml/min BUN/Creatinine Ratio 15.6 (10-20) Glucose 142 H (70-99(Fasting)) mg/dl Calcium 9.6 (8.6-10.3) mg/dl Total Bilirubin 0.5 (0.2-1.0) mg/dl AST 24 (13-39) U/L ALT 27 (7-52) U/L Alkaline Phosphatase 76 (34-104) U/L Troponin I High Sens 416.9 H* (0-14) pg/ml Total Protein 7.9 (6.0-8.3) gm/dl Albumin 4.4 (3.4-5.0) gm/dl Globulin 3.5 (2.5-4.0) gm/dl Albumin/Globulin Ratio 1.3 (0.9-2) SARS-CoV-2, RNA, NAAT (NEGATIVE) 09/12/22 09/12/22 Range/Units 14:17 14:32 WBC (4.8-10.8) K/ul RBC (4.20-5.40) M/uL Hgb (12.0-16.0) g/dl Hct (37.0-47.0) % MCV (80.0-100.0) fL MCH (25.0-34.0) pg MCHC (32.0-36.0) g/dL RDW Std Deviation (36.4-46.3) fL RDW Coeff of David (11.5-14.5) % Plt Count (130-400) K/uL MPV (9.4-12.4) fL Immature Gran % (Auto) % Neut % (Auto) % Lymph % (Auto) % [place] % (Auto) % Eos % (Auto) % Baso % (Auto) % Neut # (Auto) (1.40-6.50) K/uL Lymph # (Auto) (1.2-3.4) K/uL [place] # (Auto) (0.11-0.59) K/uL Eos # (Auto) (0-0.50) K/uL Baso # (Auto) (0-0.2) K/uL Immature Gran # (Auto) (0.01-0.20) K/uL PT (9.0-12.0) Seconds INR (0.9-1.1) APTT (21.0-31.0) Seconds PTT Ratio Sodium (136-145) mmol/L Potassium (3.5-5.1) mmol/L Chloride (98-107) mmol/L Carbon Dioxide (21-32) mmol/L Anion Gap (3-11) BUN (6-23) mg/dl Creatinine (0.6-1.2) mg/dl Est Cr Clr Drug Dosing ml/min Est GFR ( Amer) ml/min Est GFR (Non-Af Amer) ml/min BUN/Creatinine Ratio (10-20) Glucose (70-99(Fasting)) mg/dl Calcium (8.6-10.3) mg/dl Total Bilirubin (0.2-1.0) mg/dl AST (13-39) U/L ALT (7-52) U/L Alkaline Phosphatase (34-104) U/L Troponin I High Sens 433.0 H* (0-14) pg/ml Total Protein (6.0-8.3) gm/dl Albumin (3.4-5.0) gm/dl Globulin (2.5-4.0) gm/dl Albumin/Globulin Ratio (0.9-2) SARS-CoV-2, RNA, NAAT NEGATIVE (NEGATIVE) Administered Medications Amlodipine Besylate (Amlodipine Besylate 5 Mg Tab) 5 mg PO QAM [facility] Stop: 10/12/22 19:14 Last Admin: 09/12/22 19:19 Dose: 5 mg Documented By: DEREJE Heparin Sodium/Dextrose (Heparin Sodium/Dextrose) 25,000 units in 500 mls @ 13 mls/hr IV .Q24H NILO; Protocol Stop: 10/12/22 17:14 Last Admin: 09/12/22 17:12 Dose: 650 units/hr, 13 mls/hr Documented By: HS Co-signed By: MUNDO Discontinued Medications Aspirin (Aspirin Chew 324 Mg) 324 mg PO NOW STA Stop: 09/12/22 14:06 Last Admin: 09/12/22 14:18 Dose: 324 mg Documented By: MELINDA Heparin Sodium (Porcine) (Heparin Sod (Porcine) 1000 Unit/Ml) 3,000 units IV NOW ONE Stop: 09/12/22 17:16 Last Admin: 09/12/22 17:12 Dose: 3,000 units Documented By: HS Co-signed By: MUNDO Heparin Sodium/Dextrose (Heparin Iv Adult Wt-Based Low-Dose With Bolus Protocol) 1 each IV NOW STA; Protocol Stop: 09/12/22 16:47 Last Admin: 09/12/22 19:03 Dose: Not Given Documented By: DEREJE Sodium Chloride (Nss 1000ml) 1,000 mls @ 999 mls/hr IV .Q1H1M ONE Stop: 09/12/22 15:05 Last Infusion: 09/12/22 18:47 Dose: 0 mls/hr Documented By: Admin: 09/12/22 15:37 Dose: 999 mls/hr Documented By: LINETTE Ioversol (Optiray 320 500ml) 107 ml IV ONCE ONE Stop: 09/12/22 14:28 Last Admin: 09/12/22 14:27 Dose: 107 ml Documented By: YURIDIA Nitroglycerin (Nitroglycerin Sl 0.4 Mg/Tab Tab) 0.4 mg SL NOW STA Stop: 09/12/22 14:06 Last Admin: 09/12/22 14:18 Dose: 0.4 mg Documented By: MELINDA Nitroglycerin (Nitroglycerin Sl 0.4 Mg/Tab Tab) 0.4 mg SL NOW STA Stop: 09/12/22 16:47 Last Admin: 09/12/22 16:58 Dose: 0.4 mg Documented By: LINETTE Imaging Data Radiologist's Impression: Chest X-Ray 09/12/22 11:54 TWO VIEW CHEST CLINICAL HISTORY: Atypical chest pain. FINDINGS: PA and lateral chest radiographs are compared to study dated 08/17/2012. The cardiomediastinal silhouette is unremarkable. Chronic interstitial thickening is unchanged. The lungs and pleural spaces are clear. There is no pneumothorax. The skeletal structures are osteopenic. The bony thorax appears intact. Arthritic change is seen in the shoulders. IMPRESSION: No active disease in the chest. ACT 112: Negative or not required by law. Electronically signed by: Marcus Senior M.D. 09/12/2022 1:29 PM Chest CTA 09/12/22 14:05 CT ANGIOGRAM OF THE CHEST CLINICAL HISTORY: Atypical chest pain. COMPARISON STUDY: Chest x-ray dated 09/12/2022. TECHNIQUE: Following the IV administration of 107 cc of Optiray 320, CT an giogram of the chest was performed from the upper abdomen to the thoracic inlet utilizing the pulmonary embolus protocol. Images are reviewed in the axial, sagittal, and coronal planes. 3-D MIPS images are created and assessed. IV contrast was administered without complication. A dose lowering technique was utilized adhering to the principles of ALARA. CT DOSE: 264.11 mGy.cm FINDINGS: Thyroid: Normal in size and heterogeneous in attenuation. Thoracic aorta: There is moderate atherosclerotic calcification of the thoracic aorta, which is normal in caliber and demonstrates standard 3-vessel arch anatomy. No dissection is seen. Pulmonary vasculature: The pulmonary trunk is normal in caliber. There are no filling defects identified in main, lobar, or segmental pulmonary branches to suggest pulmonary embolus. Heart: The heart is normal in size and without pericardial effusion. There are scattered coronary artery calcifications. Lungs and pleural spaces: Diffuse peribronchial thickening suggests bronchitis/reactive air disease. Foci of air trapping are seen throughout both lungs. Mild groundglass changes noted at the right lung base. There is no pleural effusion. The trachea and central airways are clear. A 6 mm pleural- based nodule is seen in the superior segment of the right lower lobe along the major fissure on image #160. A 5 mm nodule in the lingula as seen on image #133, and a 3 mm pleural-based nodule in the left lower lobe along the major fissure as seen on image #180. Mediastinum: There is no mediastinal lymphadenopathy. Starr: There are calcified left hilar nodes. No hilar adenopathy is seen. Axillae: There is no axillary lymphadenopathy. Upper abdomen: A small hiatal hernia is noted. 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 Skeletal structures: The skeletal structures are osteopenic. Mild degenerative change is noted in the thoracic spine. No lytic or blastic bony lesions are seen. IMPRESSION: 1. There is no evidence of pulmonary embolus in the main, lobar, or segmental pulmonary arteries. 2. Diffuse peribronchial thickening suggests bronchitis/reactive airway disease. There is multifocal air trapping as well as mild groundglass change seen at the right lung base. Correlate clinically for evidence of a pneumonitis. 3. No pleural effusion is seen. 4. Low suspicion pulmonary and pleural-based nodules measure up to 6 mm. These are indeterminant and can be followed as per the Fleischner criteria. See below. 5. Additional findings as above. Please refer to below summary of Fleischner criteria recommendations for follow- up of incidental CT nodules (H Ani, Guidelines for management of small pulmonary nodules detected on CT scans: A statement from the Fleischner Society, Radiology 237: [phone].) SOLID NODULES Solitary nodule size: <6 mm * low risk patients: no follow-up needed * high risk patients: optional CT at 12 months Solitary nodule size: 6-8 mm * low risk patients: follow-up at 6-12 months, then consider further follow-up at 18-24 months * high risk patients: initial follow-up CT at 6-12 months and then at 18-24 months if no change Solitary nodule size: >8 mm * either low or high risk patients - consider follow-up CT at 3 months, and/or CT-PET, and/or biopsy Multiple nodules size: <6 mm * low risk patients: no routine follow-up * high risk patients: optional CT at 12 months Multiple nodules size: 6-8 mm * low risk patients: follow-up at 3-6 months, then consider further follow-up at 18-24 months * high risk patients: follow-up at 3-6 months, then at 18-24 months if no change Multiple nodules size: >8 mm * low risk patients: follow-up at 3-6 months, then consider further follow-up at 18-24 months * high risk patients: follow-up at 3-6 months, then at 18-24 months if no change Note: newly detected indeterminate nodule in persons 35 years of age or older. * low risk patients: minimal or absent history of smoking and/or other known risk factors * high risk patients: history of smoking or of other known risk factors (e.g. first degree relative with lung cancer, or exposure to asbestos, radon, uranium) * if a nodule up to 8 mm is partly solid or is ground glass further follow-up is required after 24 months to exclude possible slow growing adenocarcinoma (LUCY) SUBSOLID NODULES Solitary pure ground-glass nodule * nodule size <6 mm - no CT follow-up required * nodule size >=6 mm - follow-up CT at 6-12 months, then every 2 years until 5 years Solitary part-solid nodule * nodule size <6 mm - no CT follow-up required * nodule size >=6 mm - follow-up CT at 3-6 months. If unchanged, and solid component remains <6 mm, then annual follow-up for 5 years Multiple subsolid nodules * nodule size <6 mm - follow-up CT at 3-6 months, consider further follow-up at 2 and 4 years if stable * nodule size >=6 mm - follow-up CT at 3-6 months, subsequent management based on the most suspicious nodule(s) ACT 112: Negative or not required by law. Electronically signed by: Marcus Senior M.D. 09/12/2022 3:15 PM Discharge Plan Visit Data Chief Complaint: Cardiac Assessment Stated Complaint: HERE TO HAVE HEART CHECKED, REF BY DOC ED Provider: Antoni Santizo Discharge Problem: Substernal chest pain, Elevated troponin, Elevated blood pressure reading, Abnormal EKG, Aneurysm of splenic artery Patient Disposition: Admitted As Inpatient Discharge Instructions Interventions: ED Discharge Assessment Last Done: 09/12/22 19:12
[2022-09-12] MEDS ORDERED: HEPARIN SOD (PORCINE) 1000 UNIT/ML IV ONE ×2 (17:03→17:15)
[2022-09-12] MEDS: HEPARIN SODIUM/DEXTROSE 25,000 UNITS/500 ML BAG IV SCH (17:12)
--- NOTE | 2022-09-12 18:00 | History & Physical Report ---
Date of Service September 12, 2022 Assessment & Plan (1) Chest tightness: (2) Elevated troponin: (3) HLD (hyperlipidemia): (4) Elevated blood pressure reading: Plan This is a 72-year-old female who has a significant past medical history of hyperlipidemia, traumatic DVT, cardiac murmur and osteoporosis who presents to ED secondary to chest tightness, BAPTISTE and GERD x 2 days. Patient was in her normal state of health until she took Boniva yesterday. She then began to feel acid reflux-like symptoms. When exercising yesterday she also noticed chest tightness with exertion as well as shortness of breath with exertion that resolves immediately with rest. These were not present prior to this, and day prior she [place] [employer] without any symptoms or rest. Her heartburn-like sensation feels like her prior episodes of reflux. Previously has also had allergy-like symptoms and difficulty with shortness of breath and biking in the springtime, but never chest tightness. Chest tightness\\elevated troponin Possible NSTEMI Need to rule out ACS Admit to PCU Cycle troponin EKG in a.m. Consult cardiology Echocardiogram, last in 2014 revealed grade 1 diastolic dysfunction, preserved EF, mild aortic valve sclerosis and mild TR Lipid panel and A1c in a.m. Continue heparin until ACS ruled out trial pepcid BID for dyspepsia, suspect GERD sx 2/2 boniva Chest tightness/pressure/BATPISTE ? 2/2 NSTEMI vs reactive airway disease/asthma Elevated BP reading suspect 2/2 anxiety in ED; however previous OP readings are in 130s-140s continue to trend will add norvasc 5mg as BP 204/94 HLD continue statin, may need increased dose if tolerating based on a.m. lipid panel pt with recent lipid panel in July with LDL [address]: Diffuse peribronchial thickening suggests bronchitis/reactive airway disease. There is multifocal air trapping as well as mild groundglass change seen at the right lung base. Patient reports history of exercise-induced asthma years ago in relation to springtime Currently no acute respiratory symptoms except recent BAPTISTE Obtain procalcitonin Pulmonary and pleural nodules Incidental finding on CT Recommend repeat in 3 to 6 months, will need follow-up with PCP Low suspicion for CT DVT prophylaxis/history of traumatic DVT due to skiing accident -IV heparin Dispo: To PCU to rule out ACS Full code PCP: Zulema Patient was seen and examined in collaboration with Dr. Singletary, please see addendum History of Present Illness Chief Complaint: Chest pain x2 days. Primary Care Provider: Jhonny Poole MD This is a 72-year-old female who has a significant past medical history of hyperlipidemia, traumatic DVT, cardiac murmur and osteoporosis who presents to ED secondary to chest tightness, BAPTISTE and GERD x 2 days. Patient is otherwise healthy and very active at baseline. 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 2 days ago she walked up [facility] which is approximately 500 feet elevation climb without any symptoms. She was diagnosed with osteoporosis due to recent ankle fractures and decided to restart Boniva. She restarted Boniva yesterday and followed instructions to take with full glass of water and sit upright. She also waited to eat as instructed. She noticed approximately 1 to 2 hours after taking medication she developed heartburn-like sensation and, "gurgling in the back of her throat." It feels very similar to her prior episodes of heartburn which is typically triggered by certain foods. She then went for her usual walk and had significant difficulty with increasing shortness of breath and chest tightness causing her to have to take breaks. She only got 1 mile and almost had to call her to pick her up. When she would rest her symptoms would resolve immediately. After her walk yesterday her symptoms had resolved and after she ate dinner last night and her sherbet her reflux symptoms returned. In the middle the night it was bothering her to the point she got up and took Pepto-Bismol and feels this did improve her symptoms. Today she again went out for a walk and experience significant difficulty with shortness of breath and c hest tightness. Her walk was cut short due to her symptoms and she opted to present to ED. During these events she denies any diaphoresis, nausea, heart palpitations or lightheadedness or dizziness. She denies any recent illness although she did have COVID-19 in April and influenza in June. She does have history of seasonal spring allergies and also admits to whenever she would ride her bike this time of year she would have a lot more difficulty would have to take breaks. She denies any fever, chills, sweats, lightheadedness, dizziness, hemoptysis nausea, vomit, abdominal pain, change in bowel or urinary habits. Her blood pressure is elevated in the ED and she feels this is secondary to stress and anxiety. In ED patient did have elevated troponin at 416 and repeat 2 hours later was 433. She had subtle nonspecific ST changes diffusely and some ST depressions anteriorly. She did receive nitroglycerin which did improve her symptoms. She also received full-strength aspirin. Due to elevated troponin and concerning symptoms she was started on IV heparin. Her last stress echo was in 2014 which showed EF 60-64%, diastolic dysfunction, aortic valve sclerosis and mild TR She does have family history of CAD in her father who had an FL in his 60s. She denies smoking or alcohol use. 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; no previous echo History of DVT (deep vein thrombosis) x 2 2012 post op History of osteoporosis History of renal stone HLD (hyperlipidemia) Surgical History History of colonoscopy History of cystoscopy with stone extraction History of esophagogastroduodenoscopy (EGD) History of open reduction and internal fixation (ORIF) procedure RLE History of wisdom tooth extraction Family History Other No family history of adverse response to anesthesia Social History Smoking Status: Former smoker Second Hand Exposure: No; Hx Alcohol Use: No Hx Substance Use: No Preferred Language: Nigerian Communication Ability: Effective 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: No Beliefs That Will Affect Care: None Current Living Situation: Spouse Feels Safe at Home: Yes Assistive Devices: Crutches and Glasses Review of Systems Review of Systems: All systems reviewed & are unremarkable except as noted in HPI & below Physical Exam Physical Exam: Constitutional: WD/WN, vitals as above, NAD, sitting up in bed, pleasant, conversing easily Head: Normocephalic, Atraumatic Eyes: PERRL, conjunctivae normal, anicteric sclerae ENMT: external ear and nose normal, oropharynx normal Neck: trachea midline, no thyromegaly normal visual inspection Respiratory: normal respiratory effort, lungs clear to auscultation, no wheeze, rales, rhonchi. Normal insp/exp effort, no accessory muscle use Cardiovascular: RRR, 2 out of 6 ANABELL noted RUSB, no edema Vessels: no JVD or carotid bruit Chest: normal inspection of chest Abdomen: normal bowel sounds, soft, nontender, no hepatosplenomegaly Musculoskeletal: no cyanosis or clubbing, extremities motor strength 5/5 Skin: no rashes, warm and dry normal turgor Neurologic: PERRL, EOMI, accommodation nl, no face palsy, no dysarthria CN's II-XI intact bilaterally and moves all extremities Psychiatric: A+Ox3, euthymic affect Lymphatic: no cervical or axillary lymphadenopathy : deferred Results & Data Results & Data Vital Signs (Past 12 Hours) Vital Signs Temp Pulse Resp BP Pulse Ox O2 Del Method 09/12/22 17:00 77 30 H 95 09/12/22 17:00 157/78 H 09/12/22 16:52 65 29 H 98 09/12/22 16:52 200/70 H 09/12/22 16:34 79 23 88 L 09/12/22 16:00 67 24 98 09/12/22 16:00 208/66 H 09/12/22 16:00 208/66 H 09/12/22 15:30 61 24 96 09/12/22 15:30 187/93 H 09/12/22 15:00 62 15 98 09/12/22 15:00 194/78 H 09/12/22 14:43 95 09/12/22 14:43 191/86 H 09/12/22 14:02 63 17 09/12/22 14:13 65 09/12/22 11:50 36.8 C 62 18 180/84 H 99 Room Air Diagnostic Findings Chest X-Ray 09/12/22 11:54 TWO VIEW CHEST CLINICAL HISTORY: Atypical chest pain. FINDINGS: PA and lateral chest radiographs are compared to study dated 08/17/2012. The cardiomediastinal silhouette is unremarkable. Chronic interstitial thickening is unchanged. The lungs and pleural spaces are clear. There is no pneumothorax. The skeletal structures are osteopenic. The bony thorax appears intact. Arthritic change is seen in the shoulders. IMPRESSION: No active disease in the chest. ACT 112: Negative or not required by law. Electronically signed by: Marcus Senior M.D. 09/12/2022 1:29 PM Chest CTA 09/12/22 14:05 CT ANGIOGRAM OF THE CHEST CLINICAL HISTORY: Atypical chest pain. COMPARISON STUDY: Chest x-ray dated 09/12/2022. TECHNIQUE: Following the IV administration of 107 cc of Optiray 320, CT angiogram of the chest was performed from the upper abdomen to the thoracic inlet utilizing the pulmonary embolus protocol. Images are reviewed in the axial, sagittal, and coronal planes. 3-D MIPS images are created and assessed. IV contrast was administered without complication. A dose lowering technique was utilized adhering to the principles of ALARA. CT DOSE: 264.11 mGy.cm FINDINGS: Thyroid: Normal in size and heterogeneous in attenuation. Thoracic aorta: There is moderate atherosclerotic calcification of the thoracic aorta, which is normal in caliber and demonstrates standard 3-vessel arch anatomy. No dissection is seen. Pulmonary vasculature: The pulmonary trunk is normal in caliber. There are no filling defects identified in main, lobar, or segmental pulmonary branches to suggest pulmonary embolus. Heart: The heart is normal in size and without pericardial effusion. There are scattered coronary artery calcifications. Lungs and pleural spaces: Diffuse peribronchial thickening suggests bronchitis/reactive air disease. Foci of air trapping are seen throughout both lungs. Mild groundglass changes noted at the right lung base. There is no pleural effusion. The trachea and central airways are clear. A 6 mm pleural- based nodule is seen in the superior segment of the right lower lobe along the major fissure on image #160. A 5 mm nodule in the lingula as seen on image #133, and a 3 mm pleural-based nodule in the left lower lobe along the major fissure as seen on image #180. Mediastinum: There is no mediastinal lymphadenopathy. Starr: There are calcified left hilar nodes. No hilar adenopathy is seen. Axillae: There is no axillary lymphadenopathy. Upper abdomen: A small hiatal hernia is noted. 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 Skeletal structures: The skeletal structures are osteopenic. Mild degenerative change is noted in the thoracic spine. No lytic or blastic bony lesions are seen. IMPRESSION: 1. There is no evidence of pulmonary embolus in the main, lobar, or segmental pulmonary arteries. 2. Diffuse peribronchial thickening suggests bronchitis/reactive airway disease. There is multifocal air trapping as well as mild groundglass change seen at the right lung base. Correlate clinically for evidence of a pneumonitis. 3. No pleural effusion is seen. 4. Low suspicion pulmonary and pleural-based nodules measure up to 6 mm. These are indeterminant and can be followed as per the Fleischner criteria. See below. 5. Additional findings as above. Please refer to below summary of Fleischner criteria recommendations for follow- up of incidental CT nodules (Kimberlee Law, Guidelines for management of small pulmonary nodules detected on CT scans: A statement from the Fleischner Society, Radiology 237: [phone].) SOLID NODULES Solitary nodule size: <6 mm * low risk patients: no follow-up needed * high risk patients: optional CT at 12 months Solitary nodule size: 6-8 mm * low risk patients: follow-up at 6-12 months, then consider further follow-up at 18-24 months * high risk patients: initial follow-up CT at 6-12 months and then at 18-24 months if no change Solitary nodule size: >8 mm * either low or high risk patients - consider follow-up CT at 3 months, and/or CT-PET, and/or biopsy Multiple nodules size: <6 mm * low risk patients: no routine follow-up * high risk patients: optional CT at 12 months Multiple nodules size: 6-8 mm * low risk patients: follow-up at 3-6 months, then consider further follow-up at 18-24 months * high risk patients: follow-up at 3-6 months, then at 18-24 months if no change Multiple nodules size: >8 mm * low risk patients: follow-up at 3-6 months, then consider further follow-up at 18-24 months * high risk patients: follow-up at 3-6 months, then at 18-24 months if no change Note: newly detected indeterminate nodule in persons 35 years of age or older. * low risk patients: minimal or absent history of smoking and/or other known risk factors * high risk patients: history of smoking or of other known risk factors (e.g. first degree relative with lung cancer, or exposure to asbestos, radon, uranium) * if a nodule up to 8 mm is partly solid or is ground glass further follow-up is required after 24 months to exclude possible slow growing adenocarcinoma (LUCY) SUBSOLID NODULES Solitary pure ground-glass nodule * nodule size <6 mm - no CT follow-up required * nodule size >=6 mm - follow-up CT at 6-12 months, then every 2 years until 5 years Solitary part-solid nodule * nodule size <6 mm - no CT follow-up required * nodule size >=6 mm - follow-up CT at 3-6 months. If unchanged, and solid component remains <6 mm, then annual follow-up for 5 years Multiple subsolid nodules * nodule size <6 mm - follow-up CT at 3-6 months, consider further follow-up at 2 and 4 years if stable * nodule size >=6 mm - follow-up CT at 3-6 months, subsequent management based on the most suspicious nodule(s) ACT 112: Negative or not required by law. Electronically signed by: Marcus Senior M.D. 09/12/2022 3:15 PM Medications Administered Medication List Heparin Sodium/Dextrose (Heparin Sodium/Dextrose) 25,000 units in 500 mls @ 13 mls/hr IV .Q24H [facility]; Protocol Stop: 10/12/22 17:14 Last Admin: 09/12/22 17:12 Dose: 650 units/hr, 13 mls/hr Documented By: HS Co-signed By: MT Discontinued Medications Aspirin (Aspirin Chew 324 Mg) 324 mg PO NOW STA Stop: 09/12/22 14:06 Last Admin: 09/12/22 14:18 Dose: 324 mg Documented By: MELINDA Heparin Sodium (Porcine) (Heparin Sod (Porcine) 1000 Unit/Ml) 3,000 units IV NOW ONE Stop: 09/12/22 17:16 Last Admin: 09/12/22 17:12 Dose: 3,000 units Documented By: HS Co-signed By: MUNDO Sodium Chloride (Nss 1000ml) 1,000 mls @ 999 mls/hr IV .Q1H1M ONE Stop: 09/12/22 15:05 Last Admin: 09/12/22 15:37 Dose: 999 mls/hr Documented By: LINETTE Ioversol (Optiray 320 500ml) 107 ml IV ONCE ONE Stop: 09/12/22 14:28 Last Admin: 09/12/22 14:27 Dose: 107 ml Documented By: YURIDIA Nitroglycerin (Nitroglycerin Sl 0.4 Mg/Tab Tab) 0.4 mg SL NOW STA Stop: 09/12/22 14:06 Last Admin: 09/12/22 14:18 Dose: 0.4 mg Documented By: MELINDA Nitroglycerin (Nitroglycerin Sl 0.4 Mg/Tab Tab) 0.4 mg SL NOW STA Stop: 09/12/22 16:47 Last Admin: 09/12/22 16:58 Dose: 0.4 mg Documented By: LINETTE ECG Additional Comments: Multiple EKGs were performed and viewed At [address] abnormality, anterior depression, normal sinus rhythm COVID-19 Results Results COVID-19 Adm Lab Results: RBC 4.95 M/uL (4.20-5.40) 09/12/22 WBC 11.00 K/ul (4.8-10.8) H 09/12/22 Hgb 13.6 g/dl (12.0-16.0) 09/12/22 Hct 41.0 % (37.0-47.0) 09/12/22 Plt Count 279 K/uL (130-400) 09/12/22 Neutrophils (%) (Auto) 74.7 % 09/12/22 Lymphocytes (%) (Auto) 19.2 % 09/12/22 Monocytes # (Auto) 0.53 K/uL (0.11-0.59) 09/12/22 Eosinophils # (Auto) 0.00 K/uL (0-0.50) 09/12/22 Immature Granulocyte % (Auto) 0.3 % 09/12/22 Neutrophils # (Auto) 8.22 K/uL (1.40-6.50) H 09/12/22 Lymphocytes # (Auto) 2.11 K/uL (1.2-3.4) 09/12/22 Monocytes # (Auto) 0.53 K/uL (0.11-0.59) 09/12/22 Eosinophils # (Auto) 0.00 K/uL (0-0.50) 09/12/22 Basophils # (Auto) 0.11 K/uL (0-0.2) 09/12/22 Immature Granulocyte # (Auto) 0.03 K/uL (0.01-0.20) 3 Na 135 mmol/L (136-145) L 09/12/22 K 4.1 mmol/L (3.5-5.1) 09/12/22 Cl 102 mmol/L (98-107) 09/12/22 CO2 25 mmol/L (21-32) 09/12/22 Anion Gap 8 (3-11) 09/12/22 BUN 14 mg/dl (6-23) 09/12/22 Creatinine 0.90 mg/dl (0.6-1.2) 09/12/22 BUN/Creatinine Ratio 15.6 (10-20) 09/12/22 Glucose Level 142 mg/dl (70-99(Fasting)) H 09/12/22 Ca 9.6 mg/dl (8.6-10.3) 09/12/22 Total Bilirubin 0.5 mg/dl (0.2-1.0) 09/12/22 AST/SGOT 24 U/L (13-39) 09/12/22 ALT/SGPT 27 U/L (7-52) 09/12/22 Alkaline Phosphatase 76 U/L (34-104) 09/12/22 Total Protein 7.9 gm/dl (6.0-8.3) 09/12/22 Albumin 4.4 gm/dl (3.4-5.0) 09/12/22 Globulin 3.5 gm/dl (2.5-4.0) 09/12/22 Albumin/Globulin Ratio 1.3 (0.9-2) 09/12/22 Procalcitonin Pending 09/12/22 PTT 28.1 Seconds (21.0-31.0) 09/12/22 INR 1.0 (0.9-1.1) 09/12/22 SARS-CoV-2, RNA, NAAT NEGATIVE (NEGATIVE) 09/12/22 Chest X-Ray 09/12/22 Code Status & VTE Plan Code Status Full code VTE Prophylaxis Plan VTE Prophylaxis will be ordered: No Reason for no VTE drug order: Treatment not indicated Supervising Physician Co-Signing Physician Notes 72-year-old lady with recent diarrheal illness, history of HLD/traumatic DVT/osteoporosis on Ibandronate/heartburn or GERD presented to the ED secondary to chest tightness associated with BAPTISTE and heartburn. Patient had heartburn after few hours of taking Ibandronate yesterday evening which was relieved by Pepto-Bismol. Today morning when patient was walking, she started having another episode of chest tightness associated with shortness of breath and heartburn and she had to cut short her walk. Admitting labs reviewed, troponin elevated, chest x-ray with no acute finding, CTA chest with pulm nodules which needs follow-up. Trend troponin, echo, cardiology consult, telemetry monitoring. Hep drip. For hypertensive urgency, amlodipine. As needed BP meds. GERD - pepcid On exam: GENERAL: Alert and oriented x3. NAD, on RA. HEENT: No pallor, no icterus. Pupils equal, round and reactive to light. Oral mucosa moist. NECK: No JVD, no neck masses. HEART: S1 and S2 heard. Regular rate and rhythm. No murmur, no gallop. RESPIRATORY SYSTEM: Normal AP diameter. No accessory muscle use. No wheezing, no crackles. ABDOMEN: Soft, bowel sounds present, nontender, no distention. CENTRAL NERVOUS SYSTEM: No facial droop. Speech is clear. Obeys simple commands. Moves extremities. EXTREMITIES: No edema, no erythema seen. I have seen and examined the patient and have discussed the case with the provider above. I agree with the assessment and plan as stated.
[2022-09-12] MEDS ORDERED: LEVALBUTEROL HCL 0.63 MG/3 ML NEB NEB PRN (19:04)
[2022-09-12] MEDS ORDERED: MAGNESIUM HYDROXIDE SUSP 30 ML UDC PO PRN (19:04)
[2022-09-12] MEDS ORDERED: POLYETHYLENE (MIRALAX) 17 GM PACK PO PRN (19:04)
[2022-09-12] MEDS ORDERED: ALUMINUM/MAGNESIUM SUSP 30 ML UDC PO PRN (19:04)
[2022-09-12] MEDS: amLODIPine BESYLATE 5 MG TAB PO SCH (19:19)
[2022-09-12] MEDS ORDERED: LABETALOL HCL IV 5 MG/ML 20ML IV PRN (19:43)
[2022-09-12] MEDS: FAMOTIDINE 20 MG TAB PO SCH (20:45)
[2022-09-12 21:32] LABS: Partial Thromboplastin Ratio 1.3; Partial Thromboplastin Time 36.2 Seconds (21.0-31.0)
[2022-09-12 23:37] LABS: Partial Thromboplastin Ratio 1.2; Partial Thromboplastin Time 34.2 Seconds (21.0-31.0)
[2022-09-12] MEDS ORDERED: HEPARIN IV BOLUS 2,000 UNITS in SYRINGE 0 ML IV ONE (23:45)
[2022-09-13 06:50] LABS: Basophils # (auto) 0.11 K/uL (0-0.2); Basophils % (auto) 1.3 %; Hematocrit (blood only) 39.6 % (37.0-47.0); Hemoglobin 13.2 g/dl (12.0-16.0); Immature Granulocytes # (auto) 0.02 K/uL (0.01-0.20); Immature Granulocytes % (auto) 0.2 %; Lymphocytes # (auto) 3.42 K/uL (1.2-3.4); Lymphocytes % (auto) 39.9 %; Mean Corpuscular Hemoglobin 27.2 pg (25.0-34.0); Mean Corpuscular Hgb Conc 33.3 g/dL (32.0-36.0); Mean Corpuscular Volume 81.6 fL (80.0-100.0); Mean Platelet Volume 11.9 fL (9.4-12.4); Monocytes # (auto) 0.61 K/uL (0.11-0.59); Monocytes % (auto) 7.1 %; Neutrophils # (auto) 4.42 K/uL (1.40-6.50); Neutrophils % (auto) 51.5 %; Platelet Count 252 K/uL (130-400); RDW Coefficient of Variation 12.8 % (11.5-14.5); RDW Standard Deviation 38.1 fL (36.4-46.3); Red Blood Count 4.85 M/uL (4.20-5.40); White Blood Count 8.58 K/ul (4.8-10.8)
[2022-09-13 07:14] LABS: BUN Creatinine Ratio 15.6 (10-20); Calcium 8.8 mg/dl (8.6-10.3); Chol HDL Ratio 3.5 (0-5); Creatinine Clr Calc Pharmacy 58.9 ml/min; Est GFR (African American) 90.7 ml/min; Est GFR (Non-African American) 78.2 ml/min; Magnesium 2.1 mg/dl (1.7-2.4)
[2022-09-13 07:19] LABS: Partial Thromboplastin Ratio 1.4; Partial Thromboplastin Time 37.6 Seconds (21.0-31.0)
[2022-09-13 07:31] LABS: Troponin I High Sensitivity 751.5 pg/ml (0-14)
[2022-09-13] MEDS ORDERED: HEPARIN SOD (PORCINE) 1000 UNIT/ML IV ONE (07:52)
[2022-09-13] MEDS: HEPARIN SODIUM/DEXTROSE 25,000 UNITS/500 ML BAG IV SCH (08:02)
[2022-09-13] MEDS: ATORVASTATIN 10 MG TAB PO SCH (08:05)
[2022-09-13] MEDS: amLODIPine BESYLATE 5 MG TAB PO SCH (08:05)
[2022-09-13] MEDS: FAMOTIDINE 20 MG TAB PO SCH ×2 (08:06→19:51)
[2022-09-13 08:13] LABS: Estimated Average Glucose 128 mg/dl; Hemoglobin A1C 6.1 % (4.5-5.6)
--- NOTE | 2022-09-13 08:35 | Cardiology Consultation ---
Date of Consultation September 13, 2022 Assessment & Plan (1) Substernal chest pain: (2) NSTEMI (non-ST elevated myocardial infarction): Plan I have recommended to the patient that we proceed directly with a cardiac catheterization. She has had an elevation in her high-sensitivity troponins with a significant delta. Given her history I think it is reasonable to proceed with a cardiac catheterization directly. I have explained the risk, benefit and intent of the procedure to her along with the potential for coronary intervention and she is willing to proceed. This will be completed today. The patient does have a systolic murmur perhaps due to aortic sclerosis or even a bicuspid aortic valve. I have ordered an echocardiogram which I will review. 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 Several days ago she began taking Boniva for osteoporosis. Almost immediately after taking that medication she started to have chest pain. She did not think too much of it and eventually resolved only to return later that evening. She went on her usual walk and did have some chest discomfort but was able to make it home and after resting she felt better. On the day of admission she went for her walk and developed chest pain which was associated shortness of breath and she was not able to complete her walk. She has been admitted to the hospital and her cardiac high-sensitivity troponins are positive. EKGs are essentially normal. The patient is a nondiabetic with no prior history of smoking. She recently was started on cholesterol medications. No prior history of hypertension. 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; no previous echo History of DVT (deep vein thrombosis) x 2 2013 post op History of osteoporosis History of renal stone HLD (hyperlipidemia) Surgical History History of colonoscopy History of cystoscopy with stone extraction History of esophagogastroduodenoscopy (EGD) History of open reduction and internal fixation (ORIF) procedure RLE History of wisdom tooth extraction Family History Other No family history of adverse response to anesthesia Social History Smoking Status: Former smoker Second Hand Exposure: No; Hx Alcohol Use: No Hx Substance Use: No Preferred Language: Citizen Of [place] Communication Ability: Effective 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 All other 10 point review of systems are negative. Physical Exam Physical Exam: General: no acute distress and stated age Head: normocephalic, no masses, lesions, tenderness or abnormalities Eyes: conjunctiva are pink and non-injected, sclera clear Neck: supple, no adenopathy, no bruits, normal jugular venous pulse, no hepatojugular reflux Chest: normal shape and normal respiratory effort Lungs: clear to auscultation and percussion Cardiac Exam: - regular rate & rhythm, no murmurs gallops or rubs - normal S1, normal S2 Pulses: 2(+) throughout Abdomen: abdomen soft, non-tender, no abnormal masses and no hepatosplenomegaly Musculoskeletal: no gait disturbance, no joint inflammation, no deforming arthritis Extremities: no edema and no cyanosis Neuro: grossly normal exam Results & Data Vital Signs (Past 12 Hours) Vital Signs Temp Pulse Pulse Resp BP Pulse Ox O2 Del Method 09/13/22 07:25 56 L 09/13/22 06:57 36.9 C 55 L 18 153/74 H 96 Room Air 09/13/22 02:44 36.5 C 57 L 18 115/56 L 92 Room Air 09/12/22 23:28 69 09/12/22 23:12 36.5 C 58 L 18 133/72 93 Room Air Laboratory Results Laboratory Results - last 24 hr 09/12/22 09/12/22 09/12/22 12:00 12:00 12:00 WBC 11.00 H RBC 4.95 Hgb 13.6 Hct 41.0 MCV 82.8 MCH 27.5 MCHC 33.2 RDW Std Deviation 38.4 RDW Coeff of David 12.6 Plt Count 279 MPV 12.0 Immature Gran % (Auto) 0.3 Neut % (Auto) 74.7 Lymph % (Auto) 19.2 Wise % (Auto) 4.8 Eos % (Auto) 0.0 Baso % (Auto) 1.0 Neut # (Auto) 8.22 H Lymph # (Auto) 2.11 Wise # (Auto) 0.53 Eos # (Auto) 0.00 Baso # (Auto) 0.11 Immature Gran # (Auto) 0.03 PT 10.3 INR 1.0 APTT 28.1 PTT Ratio 1.0 Sodium 135 L Potassium 4.1 Chloride 102 Carbon Dioxide 25 Anion Gap 8 BUN 14 Creatinine 0.90 Est Cr Clr Drug Dosing 50.3 Est GFR ( Amer) 75.1 Est GFR (Non-Af Amer) 64.8 BUN/Creatinine Ratio 15.6 Glucose 142 H Estimat Average Glucose Hemoglobin A1c Calcium 9.6 Magnesium Total Bilirubin 0.5 AST 24 ALT 27 Alkaline Phosphatase 76 Troponin I High Sens 416.9 H* Total Protein 7.9 Albumin 4.4 Globulin 3.5 Albumin/Globulin Ratio 1.3 Triglycerides Cholesterol LDL Cholesterol, Calc VLDL Cholesterol, Calc HDL Cholesterol Cholesterol/HDL Ratio Procalcitonin SARS-CoV-2, RNA, NAAT 09/12/22 09/12/22 09/12/22 14:17 14:32 18:05 WBC RBC Hgb Hct MCV MCH MCHC RDW Std Deviation RDW Coeff of David Plt Count MPV Immature Gran % (Auto) Neut % (Auto) Lymph % (Auto) Wise % (Auto) Eos % (Auto) Baso % (Auto) Neut # (Auto) Lymph # (Auto) Wise # (Auto) Eos # (Auto) Baso # (Auto) Immature Gran # (Auto) PT INR APTT PTT Ratio Sodium Potassium Chloride Carbon Dioxide Anion Gap BUN Creatinine Est Cr Clr Drug Dosing Est GFR ( Amer) Est GFR (Non-Af Amer) BUN/Creatinine Ratio Glucose Estimat Average Glucose Hemoglobin A1c Calcium Magnesium Total Bilirubin AST ALT Alkaline Phosphatase Troponin I High Sens 433.0 H* Total Protein Albumin Globulin Albumin/Globulin Ratio Triglycerides Cholesterol LDL Cholesterol, Calc VLDL Cholesterol, Calc HDL Cholesterol Cholesterol/HDL Ratio Procalcitonin < 0.05 SARS-CoV-2, RNA, NAAT NEGATIVE 09/12/22 09/12/22 09/12/22 20:44 20:44 22:53 WBC RBC Hgb Hct MCV MCH MCHC RDW Std Deviation RDW Coeff of David Plt Count MPV Immature Gran % (Auto) Neut % (Auto) Lymph % (Auto) Wise % (Auto) Eos % (Auto) Baso % (Auto) Neut # (Auto) Lymph # (Auto) Wise # (Auto) Eos # (Auto) Baso # (Auto) Immature Gran # (Auto) PT INR APTT 36.2 H 34.2 H PTT Ratio 1.3 1.2 Sodium Potassium Chloride Carbon Dioxide Anion Gap BUN Creatinine Est Cr Clr Drug Dosing Est GFR ( Amer) Est GFR (Non-Af Amer) BUN/Creatinine Ratio Glucose Estimat Average Glucose Hemoglobin A1c Calcium Magnesium Total Bilirubin AST ALT Alkaline Phosphatase Troponin I High Sens 743.5 H* D Total Protein Albumin Globulin Albumin/Globulin Ratio Triglycerides Cholesterol LDL Cholesterol, Calc VLDL Cholesterol, Calc HDL Cholesterol Cholesterol/HDL Ratio Procalcitonin SARS-CoV-2, RNA, NAAT 09/13/22 09/13/22 09/13/22 02:08 05:53 05:53 WBC 8.58 RBC 4.85 Hgb 13.2 Hct 39.6 MCV 81.6 MCH 27.2 MCHC 33.3 RDW Std Deviation 38.1 RDW Coeff of David 12.8 Plt Count 252 MPV 11.9 Immature Gran % (Auto) 0.2 Neut % (Auto) 51.5 Lymph % (Auto) 39.9 Wise % (Auto) 7.1 Eos % (Auto) 0.0 Baso % (Auto) 1.3 Neut # (Auto) 4.42 Lymph # (Auto) 3.42 H Wise # (Auto) 0.61 H Eos # (Auto) 0.00 Baso # (Auto) 0.11 Immature Gran # (Auto) 0.02 PT INR APTT PTT Ratio Sodium 139 Potassium 4.0 Chloride 107 Carbon Dioxide 26 Anion Gap 6 BUN 12 Creatinine 0.77 Est Cr Clr Drug Dosing 58.9 Est GFR ( Amer) 90.7 Est GFR (Non-Af Amer) 78.2 BUN/Creatinine Ratio 15.6 Glucose 97 Estimat Average Glucose Hemoglobin A1c Calcium 8.8 Magnesium 2.1 Total Bilirubin AST ALT Alkaline Phosphatase Troponin I High Sens 829.2 H* 751.5 H* Total Protein Albumin Globulin Albumin/Globulin Ratio Triglycerides 114 Cholesterol 146 LDL Cholesterol, Calc 81 VLDL Cholesterol, Calc 23 HDL Cholesterol 42 Cholesterol/HDL Ratio 3.5 Procalcitonin SARS-CoV-2, RNA, NAAT 09/13/22 09/13/22 05:53 05:53 WBC RBC Hgb Hct MCV MCH MCHC RDW Std Deviation RDW Coeff of David Plt Count MPV Immature Gran % (Auto) Neut % (Auto) Lymph % (Auto) Wise % (Auto) Eos % (Auto) Baso % (Auto) Neut # (Auto) Lymph # (Auto) Wise # (Auto) Eos # (Auto) Baso # (Auto) Immature Gran # (Auto) PT INR APTT 37.6 H PTT Ratio 1.4 Sodium Potassium Chloride Carbon Dioxide Anion Gap BUN Creatinine Est Cr Clr Drug Dosing Est GFR ( Amer) Est GFR (Non-Af Amer) BUN/Creatinine Ratio Glucose Estimat Average Glucose 128 Hemoglobin A1c 6.1 H Calcium Magnesium Total Bilirubin AST ALT Alkaline Phosphatase Troponin I High Sens Total Protein Albumin Globulin Albumin/Globulin Ratio Triglycerides Cholesterol LDL Cholesterol, Calc VLDL Cholesterol, Calc HDL Cholesterol Cholesterol/HDL Ratio Procalcitonin SARS-CoV-2, RNA, NAAT Medications Administered Current Inpatient Medications Acetaminophen (Acetaminophen 325 Mg Tab) 650 mg PO Q4H PRN PRN Reason: Pain or Fever Stop: 10/12/22 19:03 Al Hydrox/Mg Hydrox/Simethicone (Aluminum/Magnesium Susp 30 Ml Udc) 15 ml PO Q4H PRN PRN Reason: Dyspepsia Stop: 10/12/22 19:03 Amlodipine Besylate (Amlodipine Besylate 5 Mg Tab) 5 mg PO QAM [facility] Stop: 10/12/22 19:14 Last Admin: 09/13/22 08:05 Dose: 5 mg Atorvastatin Calcium (Atorvastatin 10 Mg Tab) 10 mg PO DAILY [facility] Stop: 10/13/22 08:59 Last Admin: 09/13/22 08:05 Dose: 10 mg Famotidine (Famotidine 20 Mg Tab) 20 mg PO BID [facility] Stop: 10/12/22 20:59 Last Admin: 09/13/22 08:06 Dose: 20 mg Heparin Sodium/Dextrose (Heparin Sodium/Dextrose) 25,000 units in 500 mls @ 17 mls/hr IV .Q24H NILO; Protocol Stop: 10/12/22 17:14 Last Admin: 09/13/22 08:02 Dose: 850 units/hr, 17 mls/hr Labetalol HCl (Labetalol Hcl Iv 5 Mg/Ml 20ml) 5 mg IV Q4H PRN PRN Reason: Hypertension Stop: 10/12/22 19:42 Levalbuterol HCl (Levalbuterol Hcl 0.63 Mg/3 Ml Neb) 0.63 mg NEB Q6R PRN; Protocol PRN Reason: sob/wheezing Stop: 10/12/22 19:03 Magnesium Hydroxide (Magnesium Hydroxide Susp 30 Ml Udc) 30 ml PO Q12H PRN PRN Reason: Constipation Stop: 10/12/22 19:03 Nitroglycerin (Nitroglycerin Sl 0.4 Mg/Tab Tab) 0.4 mg SL UD PRN PRN Reason: Chest Pain Stop: 10/12/22 19:03 Ondansetron HCl (Ondansetron Inj 2 Mg/Ml 2 Ml Vial) 4 mg IV Q6H PRN PRN Reason: Nausea Stop: 10/12/22 19:03 Polyethylene Glycol (Polyethylene (Miralax) 17 Gm Pack) 17 gm PO DAILY PRN PRN Reason: Constipation Stop: 10/12/22 19:03
--- NOTE | 2022-09-13 08:47 | Pre Anesthesia Assessment ---
Date of Service September 13, 2022 Pre Sedation Assessment Vital Signs Temp Pulse Pulse Resp BP BP Pulse Ox 09/13/22 07:25 56 L 09/13/22 06:57 36.9 C 55 L 18 153/74 H 96 09/13/22 02:44 36.5 C 57 L 18 115/56 L 92 09/12/22 23:28 69 09/12/22 23:12 36.5 C 58 L 18 133/72 93 09/12/22 19:56 09/12/22 19:56 36.8 C 68 14 162/77 H 96 09/12/22 19:37 64 18 167/77 H 95 09/12/22 18:49 69 09/12/22 18:23 68 20 204/94 H 97 09/12/22 17:31 65 21 95 09/12/22 17:31 176/83 H 09/12/22 17:30 67 19 95 09/12/22 17:00 77 30 H 95 09/12/22 17:00 157/78 H 09/12/22 16:52 65 29 H 98 09/12/22 16:52 200/70 H 09/12/22 16:34 79 23 88 L 09/12/22 16:00 67 24 98 09/12/22 16:00 208/66 H 09/12/22 16:00 208/66 H 09/12/22 15:30 61 24 96 09/12/22 15:30 187/93 H 09/12/22 15:00 62 15 98 09/12/22 15:00 194/78 H 09/12/22 14:43 95 09/12/22 14:43 191/86 H 09/12/22 14:02 63 17 09/12/22 14:13 65 09/12/22 11:50 36.8 C 62 18 180/84 H 99 O2 Del Method 09/13/22 07:25 09/13/22 06:57 Room Air 09/13/22 02:44 Room Air 09/12/22 23:28 09/12/22 23:12 Room Air 09/12/22 19:56 Room Air 09/12/22 19:56 Room Air 09/12/22 19:37 Room Air 09/12/22 18:49 09/12/22 18:23 Room Air 09/12/22 17:31 09/12/22 17:31 09/12/22 17:30 09/12/22 17:00 09/12/22 17:00 09/12/22 16:52 09/12/22 16:52 09/12/22 16:34 09/12/22 16:00 09/12/22 16:00 09/12/22 16:00 09/12/22 15:30 09/12/22 15:30 09/12/22 15:00 09/12/22 15:00 09/12/22 14:43 09/12/22 14:43 09/12/22 14:02 09/12/22 14:13 09/12/22 11:50 Room Air Pre-Sedation Airway Assessment Smoking Status: Former smoker Notes The planned sedation has been discussed with the patient. Informed Consent was obtained. I have identified the patient, determined the appropriateness of sedation and have assessed the patient immediately prior to the procedure. All medicine(s) and interventions are by my order.
--- NOTE | 2022-09-13 09:27 | Electrocardiogram Report ---
Test Reason : Blood Pressure : / mmHG Vent. Rate : 057 BPM Atrial Rate : 057 BPM P-R Int : 160 ms QRS Dur : 080 ms QT Int : 484 ms P-R-T Axes : 013 -09 033 degrees QTc Int : 471 ms Sinus bradycardia Diffuse Minor Nonspecific ST abnormality Abnormal ECG When compared with ECG of 12-SEP-2022 16:56, No significant change was found Confirmed by Hector Valdes ([id number]) on 09/13/2022 9:27:18 AM Referred By: Jhonny Poole Confirmed By:Hector Valdes
--- NOTE | 2022-09-13 09:27 | Electrocardiogram Report ---
Test Reason : Blood Pressure : / mmHG Vent. Rate : 070 BPM Atrial Rate : 070 BPM P-R Int : 160 ms QRS Dur : 074 ms QT Int : 450 ms P-R-T Axes : 053 010 043 degrees QTc Int : 486 ms Normal sinus rhythm Diffuse Minor Nonspecific ST abnormality Abnormal ECG When compared with ECG of 12-SEP-2022 14:00, No significant change was found Confirmed by Hector Valdes ([id number]) on 09/13/2022 9:27:03 AM Referred By: Jhonny Poole Confirmed By:Hector Valdes
[2022-09-13] MEDS ORDERED: MIDAZOLAM HCL 1 MG/ML 2ML VIAL ONE ×2 (12:28→13:06)
[2022-09-13] MEDS ORDERED: HEPARIN (PORCINE) 1000 UNIT/ML 10 ML (CATH LAB USE ONLY) ONE (12:29)
[2022-09-13] MEDS ORDERED: NITROGLYCERIN/D5W 100MCG/ML 20ML SYR ONE (12:29)
[2022-09-13] MEDS ORDERED: niCARdipine HCL INJ 2.5 MG/ML 10 ML AMP ONE (12:29)
[2022-09-13] MEDS ORDERED: fentaNYL citrate PF 100 MCG/2 ML VIAL ONE (12:29)
--- NOTE | 2022-09-13 13:32 | Cardiac Catheterization ---
Date of Service September 13, 2022 Cardiac Cath Report Cardiac Cath Report Procedure: 1. Coronary angiography History: This is a 72-year-old female who presented with progressive exertional angina and a non-STEMI. Procedure summary: After informed consent was obtained patient is brought to the cardiac catheterization lab where access was obtained using a retrograde Salinger technique from the right radial artery. Preformed 5 Brazilian pigtail catheters were utilized for the coronary angiograms. Following the procedure the patient underwent coronary intervention. ACC data: Start time 12:49 PM End time 1:18 PM Opening aortic pressure 120/65 Closing aortic pressure 128/71 LV pressurevalve not crossed Sedation 2 mg intravenous Versed IV fluid 100 cc normal saline Contrast 73 cc Optiray Fluoroscopy time 5.2 minutes Radiation 542 mGy DAP 48.23 Huber per centimeter squared Right dominant system AUC score 9 Coronary angiography: Injections into the left coronary artery revealed the left main trunk to be patent. The left circumflex artery consists principally of a large marginal branch. The marginal branch has a subtotaled stenosis in its mid segment. The LAD extends to the apex of the heart. The LAD gives off a single large diagonal branch. The LAD nonobstructive disease in the proximal and mid segment. Injections in the right coronary artery revealed to be dominant. The right coronary artery is patent. Summary: The patient has minor nonobstructive disease except for a large marginal branch from the left circumflex artery which is subtotaled. Recommendations: The films will be reviewed by interventional cardiology.
[2022-09-13] MEDS ORDERED: ASPIRIN 81 MG ECTAB PO SCH (14:00)
[2022-09-13] MEDS ORDERED: CLOPIDOGREL BISULFATE 300 MG TAB PO STA (14:00)
[2022-09-13] MEDS: SODIUM CHLORIDE 0.9% 1000ML 1,000 ML IV SCH (14:25)
[2022-09-13] MEDS ORDERED: Nursing to Pharmacy Communication SCH (14:30)
[2022-09-13] MEDS: ASPIRIN 325 MG ECTAB PO SCH (14:44)
--- NOTE | 2022-09-13 17:44 | Hospitalist Progress Note ---
Date of Service September 13, 2022 Assessment & Plan (1) Chest tightness: (2) Elevated troponin: (3) HLD (hyperlipidemia): (4) Elevated blood pressure reading: Plan per previous hospitalist notes with addendum: This is a 72-year-old female who has a significant past medical history of hyperlipidemia, traumatic DVT, cardiac murmur and osteoporosis who presents to ED secondary to chest tightness, BAPTISTE and GERD x 2 days. Patient was in her normal state of health until she took Boniva yesterday. She then began to feel acid reflux-like symptoms. When exercising yesterday she also noticed chest tightness with exertion as well as shortness of breath with exertion that resolves immediately with rest. These were not present prior to this, and day prior she hiked [employer] without any symptoms or rest. Her heartburn-like sensation feels like her prior episodes of reflux. Previously has also had allergy-like symptoms and difficulty with shortness of breath and biking in the springtime, but never chest tightness. NSTEMI Left circumflex near occlusion Need to rule out ACS Admit to PCU Cycle troponin EKG in a.m. Consult cardiology Echocardiogram, last in 2014 revealed grade 1 diastolic dysfunction, preserved EF, mild aortic valve sclerosis and mild TR Lipid panel and A1c in a.m. Continue heparin until ACS ruled out trial pepcid BID for dyspepsia, suspect GERD sx 2/2 boniva Chest tightness/pressure/BAPTISTE ? 2/2 NSTEMI vs reactive airway disease/asthma 4/5 Chest pain-free Troponins trending down Status post cardiac cath today revealing nonobstructive coronary artery disease except for left circumflex near occlusion For PCI tomorrow Continue heparin drip Aspirin and Plavix also started Elevated BP reading Improving Continue amlodipine 5 mg daily Monitor closely HLD On Lipitor 10 mg daily May need higher dose Peribronchial thickening CT: Diffuse peribronchial thickening suggests bronchitis/reactive airway disease. There is multifocal air trapping as well as mild groundglass change seen at the right lung base. Patient reports history of exercise-induced asthma years ago in relation to springtime --No respiratory symptoms at present Pulmonary and pleural nodules Incidental finding on CT Recommend repeat in 3 to 6 months, will need follow-up with PCP Low suspicion for CT DVT prophylaxis/history of traumatic DVT due to skiing accident -IV heparin Full code PCP: [place] plan of care discussed with patient in detail and at length all questions answered She is understanding, agreeable, comfortable with the plan of care Admission and Anticipated Discharge Date Admission Date: September 12, 2022 Subjective Follow-up for non-ST elevation OR, etc. Status post cardiac cath today Seen sitting up in bed, watching TV Comfortable, not in distress Chest pain-free Was having nausea and vomiting earlier today after procedure Now resolved, tolerated dinner well No shortness of breath, palpitations, dizziness No other symptoms Review of Systems Review of Systems: all noted and negative except for above Physical Exam Physical Exam: General- oriented x 3, not in distress, speaks in sentences with no effort or accessory muscle use Eyes- anicteric Neck- no JVD Lungs- clear breath sounds bilaterally, no rales/wheezes Heart- normal rate, regular rhythm; positive grade 1-2 holosystolic murmur Abdomen- normal bowel sounds, nondistended, soft, nontender Extremities- no pretibial edema, no calf tenderness Right wrist-dressing in place, no hematoma, edema, erythema Neuro- alert, oriented x 3; no gross focal neurologic deficits Skin- warm & dry Results & Data Results & Data Vital Signs (Past 12 Hours) Vital Signs Temp Pulse Pulse Resp BP Pulse Ox O2 Del Method 09/13/22 17:06 36.6 C 62 19 148/72 H 93 Room Air 09/13/22 16:00 58 L 16 148/79 H 92 Room Air 09/13/22 15:15 61 16 145/66 H 94 Room Air 09/13/22 14:58 57 L 20 147/71 H 96 09/13/22 14:45 56 L 20 135/66 93 Room Air 09/13/22 14:14 60 18 119/70 94 Room Air 09/13/22 14:29 51 L 20 128/72 92 Room Air 09/13/22 14:00 36.6 C 57 L 16 116/61 94 Room Air 09/13/22 13:50 56 L 18 103/51 L 95 Room Air 09/13/22 11:34 62 16 157/79 H 99 Room Air 09/13/22 07:25 56 L 09/13/22 06:57 36.9 C 55 L 18 153/74 H 96 Room Air all noted and reviewed including below
[2022-09-13] MEDS: ACETAMINOPHEN 325 MG TAB PO PRN (19:45)
[2022-09-13 22:52] LABS: Partial Thromboplastin Ratio 1.5; Partial Thromboplastin Time 42.2 Seconds (21.0-31.0)
[2022-09-14] MEDS: SODIUM CHLORIDE 0.9% 1000ML 1,000 ML IV SCH ×2 (00:21→11:26)
[2022-09-14] MEDS: HEPARIN SODIUM/DEXTROSE 25,000 UNITS/500 ML BAG IV SCH (04:10)
[2022-09-14 06:20] LABS: Partial Thromboplastin Ratio 1.6; Partial Thromboplastin Time 43.9 Seconds (21.0-31.0)
--- NOTE | 2022-09-14 08:11 | Pre Anesthesia Assessment ---
Date of Service September 14, 2022 Pre Sedation Assessment Vital Signs Temp Pulse Pulse Resp BP Pulse Ox O2 Del Method 09/14/22 08:01 59 L 18 137/62 09/14/22 07:36 57 L 09/14/22 03:00 36.6 C 54 L 16 150/78 H 94 Room Air 09/14/22 01:22 60 09/13/22 23:00 36.7 C 57 L 18 133/65 93 Room Air 09/13/22 19:00 36.6 C 59 L 16 145/76 H 93 Room Air 09/13/22 17:59 60 18 125/75 92 Room Air 09/13/22 17:06 36.6 C 62 19 148/72 H 93 Room Air 09/13/22 16:00 58 L 16 148/79 H 92 Room Air 09/13/22 15:15 61 16 145/66 H 94 Room Air 09/13/22 14:58 57 L 20 147/71 H 96 09/13/22 14:45 56 L 20 135/66 93 Room Air 09/13/22 14:14 60 18 119/70 94 Room Air 09/13/22 14:29 51 L 20 128/72 92 Room Air 09/13/22 14:00 36.6 C 57 L 16 116/61 94 Room Air 09/13/22 13:50 56 L 18 103/51 L 95 Room Air 09/13/22 11:34 62 16 157/79 H 99 Room Air Cardiovascular RRR, no murmur, no edema Respiratory normal respiratory effort, lungs clear to auscultation Pre-Sedation Airway Assessment Smoking Status: Former smoker Hx Sleep Apnea: No Short, Thick Neck: No Thyromental Distance: > or= 3.5 Finger Breadths Oral Cavity: + WNL Mallampati Class: III ASA: ASA3 NPO Status Date of Last Intake of Fluids: 09/13/22 Time of Last Intake of Fluids: 19:00 Date of Last Intake of Solid Food: 09/13/22 Time of Last Intake of Solid Foods: 19:00 Notes The planned sedation has been discussed with the patient. Informed Consent was obtained. I have identified the patient, determined the appropriateness of sedation and have assessed the patient immediately prior to the procedure. All medicine(s) and interventions are by my order.
[2022-09-14] MEDS ORDERED: MIDAZOLAM HCL 1 MG/ML 2ML VIAL ONE (08:13)
[2022-09-14] MEDS ORDERED: fentaNYL citrate PF 100 MCG/2 ML VIAL ONE ×2 (08:14→09:38)
[2022-09-14] MEDS ORDERED: niCARdipine HCL INJ 2.5 MG/ML 10 ML AMP ONE (08:14)
[2022-09-14] MEDS ORDERED: HEPARIN (PORCINE) 1000 UNIT/ML 10 ML (CATH LAB USE ONLY) ONE (08:14)
[2022-09-14] MEDS ORDERED: NITROGLYCERIN/D5W 100MCG/ML 20ML SYR ONE (08:14)
--- NOTE | 2022-09-14 09:02 | Electrocardiogram Report ---
Test Reason : Blood Pressure : / mmHG Vent. Rate : 056 BPM Atrial Rate : 056 BPM P-R Int : 166 ms QRS Dur : 072 ms QT Int : 474 ms P-R-T Axes : 055 -06 003 degrees QTc Int : 457 ms Poor data quality, interpretation may be adversely affected Sinus bradycardia Diffuse Minor Nonspecific ST abnormality Abnormal ECG When compared with ECG of 13-SEP-2022 05:10, No significant change was found Confirmed by Hector Valdes ([id number]) on 09/14/2022 9:02:25 AM Referred By: Jhonny Poole Confirmed By:Hector Valdes
[2022-09-14] MEDS ORDERED: hydrALAZINE HCL 20 MG/ML VIAL IV PRN (09:26)
[2022-09-14] MEDS ORDERED: ISOSORBIDE MONO EXTENDED REL 30 MG TABCR PO ONE (09:26)
[2022-09-14] MEDS: NITROGLYCERIN SL 0.4 MG/TAB TAB SL PRN ×2 (09:27→16:34)
[2022-09-14] MEDS: CLOPIDOGREL BISULFATE 75 MG TAB PO SCH (09:27)
[2022-09-14] MEDS: ONDANSETRON INJ 2 MG/ML 2 ML VIAL IV PRN ×2 (09:28→11:36)
--- NOTE | 2022-09-14 09:33 | Post Anesthesia Assessment ---
Date of Service September 14, 2022 Post Sedation Assessment Vital Signs Temp Pulse Pulse Resp BP Pulse Ox O2 Del Method 09/14/22 08:01 59 L 18 137/62 09/14/22 07:36 57 L 09/14/22 03:00 36.6 C 54 L 16 150/78 H 94 Room Air 09/14/22 01:22 60 09/13/22 23:00 36.7 C 57 L 18 133/65 93 Room Air 09/13/22 19:00 36.6 C 59 L 16 145/76 H 93 Room Air 09/13/22 17:59 60 18 125/75 92 Room Air 09/13/22 17:06 36.6 C 62 19 148/72 H 93 Room Air 09/13/22 16:00 58 L 16 148/79 H 92 Room Air 09/13/22 15:15 61 16 145/66 H 94 Room Air 09/13/22 14:58 57 L 20 147/71 H 96 09/13/22 14:45 56 L 20 135/66 93 Room Air 09/13/22 14:14 60 18 119/70 94 Room Air 09/13/22 14:29 51 L 20 128/72 92 Room Air 09/13/22 14:00 36.6 C 57 L 16 116/61 94 Room Air 09/13/22 13:50 56 L 18 103/51 L 95 Room Air 09/13/22 11:34 62 16 157/79 H 99 Room Air Recovery Score Activity: Moves 4 extremities Respiration: Deep Breath/Cough Circulation: +/-20% PreAnes Value Consciousness: Fully Awake Oxygen Saturation: > 92% On Room Air Post Anesthesia Score: 10 Discharge Sedation Level of Care: Fast Track Phase II Post Sedation Plan On clinical assessment, the patient appears to have tolerated the sedation without complications. Patient is recovering as anticipated. Patient will continue to be monitored by nursing and may be discharged when sedation discharge criteria are met per below protocol. Upon Completions of procedure up to 15 minutes continue every 5 minute vital signs and the P.A.R. score; then discharge to a Phase I or Fast Track to Phase II per the following guidelines: * Discharge Patient to appropriate Phase II area if PAR is 8 or greater or return to pre- procedure baseline. The post - procedure orders will be as directed. * If PAR score is less than 8 or not return to pre-procedure baseline then patient will follow Phase I monitoring till PAR is reached for Phase II. The Phase I may be done in procedure room or may call to secure a Phase I area. * If naloxone or flumazenil are used for reversal, hold in Phase I for continued monitoring from when last reversal dose was given for a minimum of 60 minutes or longer pending the nurse and/or physician discretion of patient condition before discharge to Phase II. Please call the Sedation Physician to re-evaluate and complete post-note for discharge to Phase II area. Do NOT discharge from procedure sedation or Phase 1 until post- sedation evaluation note is complete by procedure /sedation MD Sedation Discharge Instructions to be given to the patient at discharge to home. [facility] [place] Procedure Codes (Charges) Indication for Procedure Indication for procedure: NSTEMI Sedation/Anesthesia Procedure 1: Sedation/Anesthesia: 30523 Mod Sedation by the same physician;Init15 Min Child Age 5 & Up (Initial 15 minutes) Total Sedation Time (minutes): 37 Procedure 2: Sedation/Anesthesia: 81356 Mod Sedation by the same physician; Ea [id number] Minutes (Additional 22 min) Total Sedation Time (minutes): 37
--- NOTE | 2022-09-14 09:37 | Cardiac Catheterization ---
[facility] Data: Panel Saw Operator Cardiac Status Clinical evaluation leading to the procedure CAD Presenation: Non STEMI Anginal Classification: CCS IV Cardiogenic Shock within 24 Hours: No Cardiac Arrest within 24 Hours: No Imaging Studies Past 6 Months: Yes Coronary Anatomy Left Main (% Stenosis): Normal (Mild) Circumflex (% Stenosis): Mid (95 to 99%) Diagnostic Physicians Name: Kelvin Fuentes MD, PhD Closure Device Percutaneous Entry Location: Femoral Closure Device: Angio-Seal Recommendations: PCI without planned CABG PCI Indication: PCI for high risk Non-SREEKANTH Lesion Segment Name: Mid to distal circumflex Culprit Artery: Yes Stenosis Prior to Rx (%): 95 to 99% Chronic Total Occlusion: No Pre-Procedure KINGS Flow: 3 Previously Treated Lesion: No Lesion Complexity: Non-High/Non-C Lesion Length (mm): 12 mm Thrombus Present: No Guidewire Across Lesion: Yes Cardiac Cath Procedure Full Procedure Date September 14, 2022 Pre-Procedure Diagnosis Pre-Procedure Diagnosis: Non STEMI AUC Score AUC Score: 07 Post-Procedure Diagnosis Post-Procedure Diagnosis: Severe CAD Procedure(s) Performed Procedure(s) Performed: Drug Eluting Stent and Ultrasound Guided Vascular Access Workcell Operator Kelvin Fuentes MD, PhD Estimated Blood Loss Estimated Blood Loss: Less than 10 mL Medication(s) Medication(s): Fentanyl, Heparin, Lidocaine 1%, Nitroglycerin and Versed Summary of Findings Brief description: Patient was brought to the cardiac catheterization suite where she was shaved and prepped in a sterile fashion. Sedated using IV Versed and fentanyl. Soft tissues of the right groin were anesthetized using 10 mL of 1% Xylocaine. Utilizing the ultrasound for guidance (image saved), the right femoral artery was accessed and a 6 Japanese femoral artery sheath was placed. ACT was checked as patient had been on a heparin drip. All catheters were subsequently advanced and exchanged over a 0.035 J-tip wire. Left coronary angiography was performed using a 6 Japanese EBU 3.0 guide catheter. Additional heparin was provided IV. The ACT was checked intermittently throughout the case and additional heparin provided as needed to maintain therapeutic ACT. A BMW reversal guidewire was advanced through the guide cath eter and positioned distally in the circumflex. Predilatation was performed using a 1.5 x 8 mm PTCA balloon up to 14 don. Process Control Operator angiography was performed. Additional predilatation was performed using a 2.0 x 12 mm balloon up to 14 don. The balloon was removed. A 2.25 x 15 mm Pj drug-eluting stent was then advanced and positioned across the lesion. This was deployed at nominal pressure (12 don). The balloon was deflated and medical administrator angiography was performed. The guidewire was then removed and angiography was performed. Patient was provided intracoronary nitroglycerin. This did not completely resolve the distal stent edge haziness and we therefore reinserted the [employer] versa guidewire and advanced in a "safety loop" through the stent and positioned the wire distally. Then, a 2.25 x 8 mm Xience drug-eluting stent was advanced and positioned so that its proximal portion was overlapped with the distal end of the prior stent. It was then deployed across the hazy lesion at 12 don. The s tent balloon was used to post dilate the overlap segment to 14 don, the midportion of the initial stent also was postdilated to 14 don, and the most proximal portion was dilated to 16 don. The balloon was removed and angiography was performed. This demonstrated complete resolution of the distal haziness. The guidewire was removed and final angiographic evaluation was performed. Limited right femoral artery angiography was performed to evaluate for closure. Findings were favorable, therefore, the femoral artery sheath was exchanged for a 6 Japanese Angio-Seal closure device. This was deployed in the recommended fashion. We obtained immediate hemostasis and the patient remained hemodynamically stable. She was returned to the recovery area. This ended the case. Angiographic findings: Initial angiography demonstrates 95 to 99% stenosis in the mid to distal circumflex ending just at the ostium of a large branching posterolateral. There is also diffuse mild disease in the circumflex system. There is 0% residual stenosis post PCI of the circumflex with 2 overlapped drug- eluting stents. There is a slight step up in size proximally as well as smaller stepdown distally. KINGS-3 flow post PCI No evidence of dissection or perforation post PCI Summary: 1. Successful PCI to the circumflex with implantation of 2 overlapped drug- eluting stents extending into the proximal portion of the large posterolateral branch. 2. No complications. 3. Patient will be on dual antiplatelet therapy with aspirin 325 mg daily and Plavix 75 mg daily to complete 1 to 2 years therapy. 4. Guideline directed medical therapy for secondary prevention of coronary disease to include; aspirin, beta-emily, high intensity statin, plus or minus SUMAYA inhibitor/ARB. Given the patient's propensity for vasospasm I would also add a long-acting nitrate. Hemodynamics Rest Ao:: 165/71 mmHg, mean 105 mmHg Final Ao: 114/59 mmHg, mean 82 mmHg LV: Not performed Recommendations Recommendations: PCI without planned CABG Radiation Exposure (mGy) 1900 mGy, fluoroscopy time 12.0 minutes Contrast (mls) 155 mL Anesthesia 2 mg IV Versed, 100 mcg IV fentanyl Procedural Complication(s) None Disposition PCU I attest to the content of the Intraoperative Record and any orders documented therein. Any exceptions are noted below. [facility] Card Cath Procedure Codes Therapeutic Services & Ancillary Procedure 1: Cardiovascular Tx and Anc Procedures: 83545 Ultrasonic Guidance Vascular Access Moderate Sedation Procedure 1: Sedation/Anesthesia: 36347 Mod Sedation by the same physician;Init15 Min Child Age 5 & Up (initial 15 min (total 37 min)) Procedure 2: Sedation/Anesthesia: 72523 Mod Sedation by the same physician; Ea [id number] Minutes (additional 22 min (total 37min)) Stenting Procedure 1: Cardiovascular Stent Procedures: 74998 Perc transcatheter placement of intracoronary stent(s), with ang (LCx) PG Care Time/CCT Total # of Minutes Spent Total Time Spent with Patient: Total time spent is greater than 50% in coordination of care (as documented) at patient's floor/unit and/or counseling patient:
[2022-09-14] MEDS: FAMOTIDINE 20 MG TAB PO SCH (10:15)
[2022-09-14] MEDS: amLODIPine BESYLATE 5 MG TAB PO SCH (10:15)
[2022-09-14] MEDS: ATORVASTATIN 10 MG TAB PO SCH (10:15)
[2022-09-14] MEDS: ASPIRIN 325 MG ECTAB PO SCH (11:26)
[2022-09-14] MEDS ORDERED: PANTOprazole 40 MG in SYRINGE 0 ML IV ONE (11:39)
--- NOTE | 2022-09-14 11:44 | Cardiology Progress Note ---
Date of Service September 14, 2022 Assessment & Plan (1) Substernal chest pain: (2) NSTEMI (non-ST elevated myocardial infarction): Plan The patient has been given some Zofran. She does have a history of some reflux with vomiting. I started her on Protonix today. We will keep n.p.o. until her nausea and vomiting improves. Admission and Anticipated Discharge Date Admission Date: September 12, 2022 Subjective The patient had a stenting procedure completed this morning. Having some nausea and vomiting afterwards. Review of Systems Review of Systems: Review of Systems: See HPI for pertinent positives. All other 10 point review of systems are negative. Physical Exam Physical Exam: General: no acute distress and stated age Head: normocephalic, no masses, lesions, tenderness or abnormalities Eyes: conjunctiva are pink and non-injected, sclera clear Neck: supple, no adenopathy, no bruits, normal jugular venous pulse, no hepatojugular reflux Chest: normal shape and normal respiratory effort Lungs: clear to auscultation and percussion Cardiac Exam: - regular rate & rhythm, no murmurs gallops or rubs - normal S1, normal S2 Pulses: 2(+) throughout Abdomen: abdomen soft, non-tender, no abnormal masses and no hepatosplenomegaly Musculoskeletal: no gait disturbance, no joint inflammation, no deforming arthritis Extremities: no edema and no cyanosis Neuro: grossly normal exam Results & Data Vital Signs (Past 12 Hours) Vital Signs Temp Pulse Pulse Resp BP Pulse Ox O2 Del Method 09/14/22 11:18 62 09/14/22 11:07 67 18 117/62 100 Nasal Cannula 09/14/22 10:37 64 18 111/52 L 100 Nasal Cannula 09/14/22 10:22 100 Nasal Cannula 09/14/22 10:07 36.4 C L 64 18 109/57 L 98 Room Air 09/14/22 09:50 64 18 108/48 L 96 Room Air 09/14/22 09:35 59 L 18 155/78 H 95 Room Air 09/14/22 08:01 59 L 18 137/62 09/14/22 07:36 57 L 09/14/22 03:00 36.6 C 54 L 16 150/78 H 94 Room Air 09/14/22 01:22 60 O2 Flow Rate 09/14/22 11:18 09/14/22 11:07 2 09/14/22 10:37 2 09/14/22 10:22 2 09/14/22 10:07 09/14/22 09:50 09/14/22 09:35 09/14/22 08:01 09/14/22 07:36 09/14/22 03:00 09/14/22 01:22 Laboratory Results Laboratory Results - last 24 hr 09/13/22 09/13/22 09/13/22 10:46 13:19 17:12 APTT PTT Ratio Activ Coag Time Kaolin 191 H Troponin I High Sens 465.9 H* D 382.7 H* 09/13/22 09/14/22 09/14/22 21:48 05:23 08:43 APTT 42.2 H 43.9 H PTT Ratio 1.5 1.6 Activ Coag Time Kaolin 155 H Troponin I High Sens 09/14/22 09/14/22 08:53 09:16 APTT PTT Ratio Activ Coag Time Kaolin 251 H 215 H Troponin I High Sens Medications Administered Current Inpatient Medications Acetaminophen (Acetaminophen 325 Mg Tab) 650 mg PO Q4H PRN PRN Reason: Pain or Fever Stop: 10/12/22 19:03 Last Admin: 09/13/22 19:45 Dose: 650 mg Al Hydrox/Mg Hydrox/Simethicone (Aluminum/Magnesium Susp 30 Ml Udc) 15 ml PO Q4H PRN PRN Reason: Dyspepsia Stop: 10/12/22 19:03 Amlodipine Besylate (Amlodipine Besylate 5 Mg Tab) 5 mg PO [facility] Stop: 10/12/22 19:14 Last Admin: 09/14/22 10:15 Dose: 5 mg Aspirin (Aspirin 325 Mg Ectab) 325 mg PO [facility] Stop: 10/13/22 13:59 Last Admin: 09/14/22 11:26 Dose: 325 mg Atorvastatin Calcium (Atorvastatin 10 Mg Tab) 10 mg PO DAILY [facility] Stop: 10/13/22 08:59 Last Admin: 09/14/22 10:15 Dose: 10 mg Clopidogrel Bisulfate (Clopidogrel Bisulfate 75 Mg Tab) 75 mg PO [facility] Stop: 10/14/22 08:59 Last Admin: 09/14/22 09:27 Dose: 75 mg Hydralazine HCl (Hydralazine Hcl 20 Mg/Ml Vial) 10 mg IV Q4 PRN PRN Reason: Blood Pressure - High Stop: 10/14/22 09:25 Last Admin: 09/14/22 09:38 Dose: 10 mg Sodium Chloride (Nss 1000ml) 1,000 mls @ 65 mls/hr IV .[id number] [facility] Stop: 10/13/22 08:59 Last Admin: 09/14/22 11:26 Dose: 65 mls/hr Pantoprazole Sodium 40 mg/ (Syringe) 10 mls @ 5 mls/min IV NOW ONE Stop: 09/14/22 11:40 Isosorbide Mononitrate (Isosorbide [place] Extended Rel 30 Mg Tabcr) 30 mg PO [facility] Stop: 10/15/22 08:59 Levalbuterol HCl (Levalbuterol Hcl 0.63 Mg/3 Ml Neb) 0.63 mg NEB Q6R PRN; Protocol PRN Reason: sob/wheezing Stop: 10/12/22 19:03 Magnesium Hydroxide (Magnesium Hydroxide Susp 30 Ml Udc) 30 ml PO Q12H PRN PRN Reason: Constipation Stop: 10/12/22 19:03 Nitroglycerin (Nitroglycerin Sl 0.4 Mg/Tab Tab) 0.4 mg SL UD PRN PRN Reason: Chest Pain Stop: 10/12/22 19:03 Last Admin: 09/14/22 09:27 Dose: 0.4 mg Ondansetron HCl (Ondansetron Inj 2 Mg/Ml 2 Ml Vial) 4 mg IV Q6H PRN PRN Reason: Nausea Stop: 10/12/22 19:03 Last Admin: 09/14/22 11:36 Dose: 4 mg Pantoprazole Sodium (Pantoprazole 40 Mg Tab) [facility] [place] Stop: 10/15/22 08:59 Polyethylene Glycol (Polyethylene (Miralax) 17 Gm Pack) 17 gm PO DAILY PRN PRN Reason: Constipation Stop: 10/12/22 19:03
[2022-09-14] MEDS ORDERED: ALUMINUM/MAGNESIUM SUSP 30 ML UDC PO STA (14:42)
[2022-09-14] MEDS ORDERED: ALUMINUM/MAGNESIUM SUSP 30 ML UDC PO PRN (14:42)
[2022-09-14 15:32] LABS: BUN Creatinine Ratio 16.5 (10-20); Calcium 8.4 mg/dl (8.6-10.3); Est GFR (African American) 87.9 ml/min; Est GFR (Non-African American) 75.8 ml/min; Potassium 3.7 mmol/L (3.5-5.1)
--- NOTE | 2022-09-14 16:46 | Electrocardiogram Report ---
Test Reason : Blood Pressure : / mmHG Vent. Rate : 068 BPM Atrial Rate : 068 BPM P-R Int : 178 ms QRS Dur : 078 ms QT Int : 460 ms P-R-T Axes : 067 -06 016 degrees QTc Int : 489 ms Normal sinus rhythm Normal ECG When compared with ECG of 14-SEP-2022 06:07, No significant change was found Confirmed by Hector Valdes ([id number]) on 09/14/2022 4:46:05 PM Referred By: Jhonny Poole Confirmed By:Hector Valdes
--- NOTE | 2022-09-14 18:08 | Hospitalist Progress Note ---
Date of Service September 14, 2022 Assessment & Plan (1) Chest tightness: (2) Elevated troponin: (3) HLD (hyperlipidemia): (4) Elevated blood pressure reading: Plan per previous hospitalist notes with addendum: This is a 72-year-old female who has a significant past medical history of hyperlipidemia, traumatic DVT, cardiac murmur and osteoporosis who presents to ED secondary to chest tightness, BAPTISTE and GERD x 2 days. Patient was in her normal state of health until she took Boniva yesterday. She then began to feel acid reflux-like symptoms. When exercising yesterday she also noticed chest tightness with exertion as well as shortness of breath with exertion that resolves immediately with rest. These were not present prior to this, and day prior she hiked [place] without any symptoms or rest. Her heartburn-like sensation feels like her prior episodes of reflux. Previously has also had allergy-like symptoms and difficulty with shortness of breath and biking in the springtime, but never chest tightness. NSTEMI Left circumflex near occlusion Need to rule out ACS Admit to PCU Cycle troponin EKG in a.m. Consult cardiology Echocardiogram, last in 2014 revealed grade 1 diastolic dysfunction, preserved EF, mild aortic valve sclerosis and mild TR Lipid panel and A1c in a.m. Continue heparin until ACS ruled out trial pepcid BID for dyspepsia, suspect GERD sx 2/2 boniva Chest tightness/pressure/BAPTISTE ? 2/2 NSTEMI vs reactive airway disease/asthma 4/5 Chest pain-free Troponins trending down Status post cardiac cath today revealing nonobstructive coronary artery disease except for left circumflex near occlusion For PCI tomorrow Continue heparin drip Aspirin and Plavix also started 4/6 s/p PCI today chest pain likely from vomiting episode Maalox given Protonix started continue ASA, Plavix, Imdur, Lipitor Elevated BP reading Improved Continue amlodipine 5 mg daily Monitor closely HLD On Lipitor 10 mg daily May need higher dose Peribronchial thickening CT: Diffuse peribronchial thickening suggests bronchitis/reactive airway disease. There is multifocal air trapping as well as mild groundglass change seen at the right lung base. Patient reports history of exercise-induced asthma years ago in relation to --No respiratory symptoms at present Pulmonary and pleural nodules Incidental finding on CT Recommend repeat in 3 to 6 months, will need follow-up with PCP Low suspicion for CT DVT prophylaxis/history of traumatic DVT due to skiing accident -IV heparin Full code PCP: Zulema plan of care discussed with patient in detail and at length all questions answered She is understanding, agreeable, comfortable with the plan of care A total of 40 minutes spent for patient care including interviewing and examining the patient, reviewing medications and adjustments done as necessary, coordinating with medical team. Admission and Anticipated Discharge Date Admission Date: September 12, 2022 Subjective ff up for nstemi, etc s/p PCI today was heaving chest pain earlier given Protonix, Imdur improved seen resting in bed, sitting up comfortable states she feels improved, has mild chest discomfort was vomiting prior to start of chest discomfort no dyspnea, palpitations, dizziness no other symptoms Review of Systems Review of Systems: all noted and negative except for above Physical Exam Physical Exam: General- oriented x 3, not in distress, speaks in sentences with no effort or accessory muscle use Eyes- anicteric Neck- no JVD Lungs- clear BS bilaterally, no rales/wheezes Heart- normal rate, regular rhythm; no murmurs Abdomen- normal bowel sounds, nondistended, soft, nontender Extremities- no pretibial edema, no calf tenderness Neuro- alert, oriented x 3; no gross focal neurologic deficits Skin- warm & dry Results & Data Results & Data Vital Signs (Past 12 Hours) Vital Signs Temp Pulse Pulse Resp BP Pulse Ox O2 Del Method 09/14/22 17:37 75 09/14/22 16:30 63 18 108/60 99 Nasal Cannula 09/14/22 15:30 36.7 C 67 16 119/68 97 Nasal Cannula 09/14/22 13:07 75 18 130/69 96 Nasal Cannula 09/14/22 11:48 68 18 132/61 97 Nasal Cannula 09/14/22 11:18 62 09/14/22 11:07 67 18 117/62 100 Nasal Cannula 09/14/22 10:37 64 18 111/52 L 100 Nasal Cannula 09/14/22 10:22 100 Nasal Cannula 09/14/22 10:07 36.4 C L 64 18 109/57 L 98 Room Air 09/14/22 09:50 64 18 108/48 L 96 Room Air 09/14/22 09:35 59 L 18 155/78 H 95 Room Air 09/14/22 08:01 59 L 18 137/62 09/14/22 07:36 57 L O2 Flow Rate 09/14/22 17:37 09/14/22 16:30 2 09/14/22 15:30 2 09/14/22 13:07 2 09/14/22 11:48 2 09/14/22 11:18 09/14/22 11:07 2 09/14/22 10:37 2 09/14/22 10:22 2 09/14/22 10:07 09/14/22 09:50 09/14/22 09:35 09/14/22 08:01 09/14/22 07:36 all noted and reviewed including below
[2022-09-15] MEDS: ACETAMINOPHEN 325 MG TAB PO PRN (03:12)
[2022-09-15] MEDS: SODIUM CHLORIDE 0.9% 1000ML 1,000 ML IV SCH (04:25)
[2022-09-15 06:26] LABS: BUN Creatinine Ratio 13.7 (10-20); Calcium 8.2 mg/dl (8.6-10.3); Creatinine Clr Calc Pharmacy 62.1 ml/min; Est GFR (African American) 96.7 ml/min; Est GFR (Non-African American) 83.4 ml/min; Potassium 4.1 mmol/L (3.5-5.1)
[2022-09-15] MEDS: ATORVASTATIN 10 MG TAB PO SCH (08:25)
[2022-09-15] MEDS: amLODIPine BESYLATE 5 MG TAB PO SCH (08:26)
[2022-09-15] MEDS: CLOPIDOGREL BISULFATE 75 MG TAB PO SCH (08:26)
--- NOTE | 2022-09-15 08:32 | Cardiology Progress Note ---
Date of Service September 15, 2022 Assessment & Plan (1) Substernal chest pain: (2) NSTEMI (non-ST elevated myocardial infarction): Plan The patient will work with physical therapy this morning. If she is able to ambulate without difficulty then I think she can go home this afternoon. I would continue the Protonix, isosorbide mononitrate, Plavix, aspirin, atorvastatin and amlodipine. I will arrange follow-up with our clinic. Admission and Anticipated Discharge Date Admission Date: September 12, 2022 Subjective The patient improved through the night and feels well this morning. Review of Systems Review of Systems: Review of Systems: See HPI for pertinent positives. All other 10 point review of systems are negative. Physical Exam Physical Exam: General: no acute distress and stated age Head: normocephalic, no masses, lesions, tenderness or abnormalities Eyes: conjunctiva are pink and non-injected, sclera clear Neck: supple, no adenopathy, no bruits, normal jugular venous pulse, no hepatojugular reflux Chest: normal shape and normal respiratory effort Lungs: clear to auscultation and percussion Cardiac Exam: - regular rate & rhythm, no murmurs gallops or rubs - normal S1, normal S2 Pulses: 2(+) throughout Abdomen: abdomen soft, non-tender, no abnormal masses and no hepatosplenomegaly Musculoskeletal: no gait disturbance, no joint inflammation, no deforming arthritis Extremities: no edema and no cyanosis Neuro: grossly normal exam Results & Data Vital Signs (Past 12 Hours) Vital Signs Temp Pulse Pulse Resp BP Pulse Ox O2 Del Method 09/15/22 08:08 Room Air 09/15/22 08:06 36.6 C 59 L 17 126/58 L 93 Room Air 09/15/22 07:08 58 L 09/14/22 22:03 71 09/15/22 03:08 36.8 C 69 18 119/53 L 95 Room Air 09/14/22 23:50 37.0 C 74 20 134/63 92 Room Air Laboratory Results Laboratory Results - last 24 hr 09/14/22 09/14/22 09/14/22 08:43 08:53 09:16 Activ Coag Time Kaolin 155 H 251 H 215 H Sodium Potassium Chloride Carbon Dioxide Anion Gap BUN Creatinine Est Cr Clr Drug Dosing Est GFR ( Amer) Est GFR (Non-Af Amer) BUN/Creatinine Ratio Glucose Calcium 09/14/22 09/15/22 14:33 05:22 Activ Coag Time Kaolin Sodium 136 137 Potassium 3.7 4.1 Chloride 107 109 H Carbon Dioxide 22 24 Anion Gap 7 4 BUN 13 10 Creatinine 0.79 0.73 Est Cr Clr Drug Dosing 57.0 62.1 Est GFR ( Amer) 87.9 96.7 Est GFR (Non-Af Amer) 75.8 83.4 BUN/Creatinine Ratio 16.5 13.7 Glucose 145 H 109 H Calcium 8.4 L 8.2 L Medications Administered Current Inpatient Medications Acetaminophen (Acetaminophen 325 Mg Tab) 650 mg PO Q4H PRN PRN Reason: Pain or Fever Stop: 10/12/22 19:03 Last Admin: 09/15/22 03:12 Dose: 650 mg Al Hydrox/Mg Hydrox/Simethicone (Aluminum/Magnesium Susp 30 Ml Udc) 30 ml PO Q6H PRN PRN Reason: Dyspepsia Stop: 10/14/22 14:41 Amlodipine Besylate (Amlodipine Besylate 5 Mg Tab) 5 mg PO [facility] Stop: 10/12/22 19:14 Last Admin: 09/15/22 08:26 Dose: 5 mg Aspirin (Aspirin 81 Mg Ectab) 81 mg PO [facility] Stop: 10/15/22 08:59 Atorvastatin Calcium (Atorvastatin 10 Mg Tab) 10 mg PO DAILY [facility] Stop: 10/13/22 08:59 Last Admin: 09/15/22 08:25 Dose: 10 mg Clopidogrel Bisulfate (Clopidogrel Bisulfate 75 Mg Tab) 75 mg PO [facility] Stop: 10/14/22 08:59 Last Admin: 09/15/22 08:26 Dose: 75 mg Hydralazine HCl (Hydralazine Hcl 20 Mg/Ml Vial) 10 mg IV Q4 PRN PRN Reason: Blood Pressure - High Stop: 10/14/22 09:25 Last Admin: 09/14/22 09:38 Dose: 10 mg Isosorbide Mononitrate (Isosorbide [place] Extended Rel 30 Mg Tabcr) 30 mg PO [facility] Stop: 10/15/22 08:59 Last Admin: 09/15/22 08:25 Dose: 30 mg Levalbuterol HCl (Levalbuterol Hcl 0.63 Mg/3 Ml Neb) 0.63 mg NEB Q6R PRN; Protocol PRN Reason: sob/wheezing Stop: 10/12/22 19:03 Magnesium Hydroxide (Magnesium Hydroxide Susp 30 Ml Udc) 30 ml PO Q12H PRN PRN Reason: Constipation Stop: 10/12/22 19:03 Nitroglycerin (Nitroglycerin Sl 0.4 Mg/Tab Tab) 0.4 mg SL UD PRN PRN Reason: Chest Pain Stop: 10/12/22 19:03 Last Admin: 09/14/22 16:34 Dose: 0.4 mg Ondansetron HCl (Ondansetron Inj 2 Mg/Ml 2 Ml Vial) 4 mg IV Q6H PRN PRN Reason: Nausea Stop: 10/12/22 19:03 Last Admin: 09/14/22 11:36 Dose: 4 mg Pantoprazole Sodium (Pantoprazole 40 Mg Tab) 40 mg PO [facility] Stop: 10/15/22 08:59 Last Admin: 09/15/22 08:25 Dose: 40 mg Polyethylene Glycol (Polyethylene (Miralax) 17 Gm Pack) 17 gm PO DAILY PRN PRN Reason: Constipation Stop: 10/12/22 19:03
[2022-09-15] MEDS ORDERED: ISOSORBIDE MONO EXTENDED REL 30 MG TABCR PO SCH (09:00)
[2022-09-15] MEDS ORDERED: PANTOprazole 40 MG TAB PO SCH (09:00)
[2022-09-15] MEDS ORDERED: ASPIRIN 81 MG ECTAB PO SCH (09:00)
--- NOTE | 2022-09-15 14:36 | Hospitalist Progress Note ---
Date of Service September 15, 2022 delayed entry date of service noted above Assessment & Plan (1) Chest tightness: (2) Elevated troponin: (3) HLD (hyperlipidemia): (4) Elevated blood pressure reading: Plan per previous hospitalist notes with addendum: This is a 72-year-old female who has a significant past medical history of hyperlipidemia, traumatic DVT, cardiac murmur and osteoporosis who presents to ED secondary to chest tightness, BAPTISTE and GERD x 2 days. NSTEMI Left circumflex near occlusion 4/ s/p PCI : Successful PCI to the circumflex with implantation of 2 overlapped drug-eluting stents extending into the proximal portion of the large post erolateral branch. discharge plan: continue ASA, Plavix, Imdur, Lipitor ff up with Cardiology in 1-2 weeks Hypertension Improved Continue amlodipine 5 mg daily Monitor closely HLD Lipitor increased to 40mg po daily Peribronchial thickening CT: Diffuse peribronchial thickening suggests bronchitis/reactive airway disease. There is multifocal air trapping as well as mild groundglass change seen at the right lung base. Patient reports history of exercise-induced asthma years ago in relation to sp ringtime --No respiratory symptoms at present Pulmonary and pleural nodules Incidental finding on CT Recommend repeat in 3 to 6 months, will need follow-up with PCP plan of care discussed with patient in detail and at length all questions answered She is understanding, agreeable, comfortable with the plan of care A total of 40 minutes spent for patient care including interviewing and examining the patient, reviewing medications and adjustments done as necessary, coordinating with medical team. Admission and Anticipated Discharge Date Admission Date: September 12, 2022 Subjective ff up for NSTEMI, etc Seen resting in bed, not in distress States she feels much better overall no chest pain, dyspnea, palpitations, dizziness ambulating with no problems States she is ready for discharge today Review of Systems Review of Systems: all noted and negative except for above Physical Exam Physical Exam: General- oriented x 3, not in distress, speaks in sentences with no effort or accessory muscle use Eyes- anicteric Neck- no JVD Lungs- clear breath sounds bilaterally, no rales/wheezes Heart- normal rate, regular rhythm; no murmurs Abdomen- normal bowel sounds, nondistended, soft, nontender Extremities- no pretibial edema, no calf tenderness Neuro- alert, oriented x 3; no gross focal neurologic deficits Skin- warm & dry Results & Data Results & Data Vital Signs (Past 12 Hours) Vital Signs Temp Pulse Pulse Resp BP Pulse Ox O2 Del Method 09/15/22 14:26 36.9 C 61 17 129/66 93 09/15/22 11:59 36.9 C 61 17 129/66 93 Room Air 09/15/22 08:08 Room Air 09/15/22 08:06 36.6 C 59 L 17 126/58 L 93 Room Air 09/15/22 07:08 58 L 09/15/22 03:08 36.8 C 69 18 119/53 L 95 Room Air
--- NOTE | 2022-09-15 17:08 | Electrocardiogram Report ---
Test Reason : Blood Pressure : / mmHG Vent. Rate : 063 BPM Atrial Rate : 063 BPM P-R Int : 164 ms QRS Dur : 068 ms QT Int : 462 ms P-R-T Axes : 058 -05 032 degrees QTc Int : 472 ms Normal sinus rhythm Minor Nonspecific ST abnormality Anterolateral leads Abnormal ECG When compared with ECG of 14-SEP-2022 11:17, Minor Nonspecific ST abnormality Anterolateral leads now present Confirmed by Hector Valdes ([id number]) on 09/15/2022 5:08:08 PM Referred By: Jhonny Poole Confirmed By:Hector Valdes
--- NOTE | 2022-09-20 05:39 | Electrocardiogram Report ---
Test Reason : Blood Pressure : / mmHG Vent. Rate : 055 BPM Atrial Rate : 055 BPM P-R Int : 168 ms QRS Dur : 078 ms QT Int : 484 ms P-R-T Axes : 069 007 046 degrees QTc Int : 463 ms Sinus bradycardia Otherwise normal ECG When compared with ECG of 14-SEP-2022 06:07, Nonspecific ST abnormality is no longer Present Confirmed by Mauro Parham ([id number]) on 09/20/2022 5:38:53 AM Referred By: Jhonny Poole Confirmed By:Mauro Parham
--- NOTE | 2022-09-21 15:24 | Discharge Summary ---
Discharge Summary Date of Service September 21, 2022 Notes For Next Care Provider (+) Pulmonary nodules -Follow-up CT chest in 3 to 6 months Medication Changes From Visit IMDUR AMLODIPINE ASPIRIN, PLAVIX LIPITOR-increased to 40 mg daily PROTONIX Admission HPI Per Admitting Provider This is a 72-year-old female who has a significant past medical history of hyp erlipidemia, traumatic DVT, cardiac murmur and osteoporosis who presents to ED secondary to chest tightness, BAPTISTE and GERD x 2 days. Patient is otherwise healthy and very active at baseline. 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 2 days ago she walked up [facility] which is approximately 500 feet elevation climb without any symptoms. She was diagnosed with osteoporosis due to recent ankle fractures and decided to restart Boniva. She restarted Boniva yesterday and followed instructions to take with full glass of water and sit upright. She also waited to eat as instructed. She noticed approximately 1 to 2 hours after taking medication she developed heartburn-like sensation and, "gurgling in the back of her throat." It feels very similar to her prior episodes of heartburn which is typically triggered by certain foods. She then went for her usual walk and had significant difficulty with increasing shortness of breath and chest tightness causing her to have to take breaks. She only got 1 mile and almost had to call her to pick her up. When she would rest her symptoms would resolve immediately. After her walk yesterday her symptoms had resolved and after she ate dinner last night and her sherbet her reflux symptoms returned. In the middle the night it was bothering her to the point she got up and took Pepto-Bismol and feels this did improve her symptoms. Today she again went out for a walk and experience significant difficulty with shortness of breath and chest tightness. Her walk was cut short due to her symptoms and she opted to present to ED. During these events she denies any diaphoresis, nausea, heart palpitations or lightheadedness or dizziness. She denies any recent illness although she did have COVID-19 in April and influenza in June. She does have history of seasonal spring allergies and also admits to whenever she would ride her bike this time of year she would have a lot more difficulty would have to take breaks. She denies any fever, chills, sweats, lightheadedness, dizziness, hemoptysis nausea, vomit, abdominal pain, change in bowel or urinary habits. Her blood pressure is elevated in the ED and she feels this is secondary to stress and anxiety. In ED patient did have elevated troponin at 416 and repeat 2 hours later was 433. She had subtle nonspecific ST changes diffusely and some ST depressions anteriorly. She did receive nitroglycerin which did improve her symptoms. She also received full-strength aspirin. Due to elevated troponin and concerning symptoms she was started on IV heparin. Her last stress echo was in 2014 which showed EF 60-64%, diastolic dysfunction, aortic valve sclerosis and mild TR She does have family history of CAD in her father who had an DE in his 60s. She denies smoking or alcohol use. Admission Exam Per Admitting Provider Constitutional: WD/WN, vitals as above, NAD, sitting up in bed, pleasant, conversing easily Head: Normocephalic, Atraumatic Eyes: PERRL, conjunctivae normal, anicteric sclerae ENMT: external ear and nose normal, oropharynx normal Neck: trachea midline, no thyromegaly normal visual inspection Respiratory: normal respiratory effort, lungs clear to auscultation, no wheeze, rales, rhonchi. Normal insp/exp effort, no accessory muscle use Cardiovascular: RRR, 2 out of 6 ANABELL noted RUSB, no edema Vessels: no JVD or carotid bruit Chest: normal inspection of chest Abdomen: normal bowel sounds, soft, nontender, no hepatosplenomegaly Musculoskeletal: no cyanosis or clubbing, extremities motor strength 5/5 Skin: no rashes, warm and dry normal turgor Neurologic: PERRL, EOMI, accommodation nl, no face palsy, no dysarthria CN's II-XI intact bilaterally and moves all extremities Psychiatric: A+Ox3, euthymic affect Lymphatic: no cervical or axillary lymphadenopathy : deferred Principal Dx & Hospital Course #1 = Principal Diagnosis (1) Chest tightness: (2) Elevated troponin: (3) HLD (hyperlipidemia): (4) Elevated blood pressure reading: Plan per previous hospitalist notes with addendum: This is a 72-year-old female who has a significant past medical history of hyperlipidemia, traumatic DVT, cardiac murmur and osteoporosis who presents to ED secondary to chest tightness, BAPTISTE and GERD x 2 days. NSTEMI Left circumflex near occlusion / s/p PCI : Successful PCI to the circumflex with implantation of 2 overlapped drug-eluting stents extending into the proximal portion of the large posterolateral branch. discharge plan: continue ASA, Plavix, Imdur, Lipitor ff up with Cardiology in 1-2 weeks Hypertension Improved Continue amlodipine 5 mg daily Monitor closely HLD Lipitor increased to 40mg po daily Peribronchial thickening CT: Diffuse peribronchial thickening suggests bronchitis/reactive airway disease. There is multifocal air trapping as well as mild groundglass change seen at the right lung base. Patient reports history of exercise-induced asthma years ago in relation to --No respiratory symptoms at present Pulmonary and pleural nodules Incidental finding on CT Recommend repeat in 3 to 6 months, will need follow-up with PCP plan of care discussed with patient in detail and at length all questions answered She is understanding, agreeable, comfortable with the plan of care A total of 40 minutes spent for patient care including interviewing and examining the patient, reviewing medications and adjustments done as necessary, coordinating with medical team. Discharge Exam General- oriented x 3, not in distress, speaks in sentences with no effort or accessory muscle use Eyes- anicteric Neck- no JVD Lungs- clear breath sounds bilaterally, no rales/wheezes Heart- normal rate, regular rhythm; no murmurs Abdomen- normal bowel sounds, nondistended, soft, nontender Extremities- no pretibial edema, no calf tenderness Neuro- alert, oriented x 3; no gross focal neurologic deficits Skin- warm & dry Updated Medication List Medication Instructions Recorded Confirmed Type ibandronate 150 mg tablet 150 mg PO MONTHLY 09/12/22 09/12/22 History amlodipine 5 mg tablet (Norvasc) 5 mg PO QAM 30 days #30 tabs 09/15/22 Rx aspirin 81 mg tablet,delayed 81 mg PO QAM #30 tabs 09/15/22 Rx release atorvastatin 40 mg tablet (Lipitor) 40 mg PO DAILY #30 tabs 09/15/22 Rx clopidogrel 75 mg tablet 75 mg PO QAM 30 days #30 tabs 09/15/22 Rx isosorbide mononitrate 30 mg 30 mg PO QAM 30 days #30 tabs 09/15/22 Rx tablet,extended release 24 hr pantoprazole 40 mg tablet,delayed 40 mg PO QAM 30 days #30 tabs 09/15/22 Rx release Hospital Stay Data Consultations 09/12/22 16:51 ED Decision to Admit Stat 09/12/22 19:04 Consult Cardiology Routine Procedures Performed Operation Date: 09/14/22 11:00 Actual Procedures p Cineradiography w/Routine Exam - Kelvin Fuentes MD, PhD p Drug Eluting Stent SGl Vessel - Kelvin Fuentes MD, PhD s Placement Art Occlusive Device - Kelvin Fuentes MD, PhD s Ultrasound Vascular Access - Kelvin Fuentes MD, PhD Diagnostic Imagining Performed 09/12/22 14:05 CT angio chest PE protocol Stat 09/13/22 08:18 CL Cath Imgs for PACS use only Urgent 09/14/22 06:32 CL Cath Imgs for PACS use only Routine Pending Results Patient Have Any Pending Studies at Discharge: No Discharge Instructions Given to Patient (Per Discharging Provider) PLEASE REFER TO YOUR NEW MEDICATION LIST AND FOLLOW INSTRUCTIONS CAREFULLY. YOUR NEW MEDICATIONS INCLUDE: IMDUR- blood pressure medication, also to prevent chest pain AMLODIPINE- blood pressure medication ASPIRIN, PLAVIX- antiplatelet medications to prevent heart attack, cardiac stent blockage - please do not miss taking these 2 medications every day LIPITOR- to lower cholesterol, prevent heart attack PROTONIX- for gastric reflux PLEASE CALL YOUR PRIMARY CARE PHYSICIAN OR RETURN TO THE ER IF WITH WORSENING OF SYMPTOMS, INCLUDING chest pain, shortness of breath, dizziness, palpitations, muscle cramping, etc FOLLOW UP WITH PRIMARY CARE PHYSICIAN IN 1 WEEK. FOLLOW UP WITH BUSINESS ACCOUNT MANAGER DR. DODGE IN 2 WEEKS. THE CLINIC WILL BE CALLING YOU SOON FOR THE APPOINTMENT SCHEDULE. Total Time Total Time Spent Total Time Spent (In Minutes): >30 minutes
== END 2022-09-15 15:46 | disposition home or self-care (01) ==
LOC: ED 11:47 → EDINP 17:03 → INTOOBSV 17:03 → SUATTDRO 17:03 → 2S 19:12
PROC: CLB.CCO (2022-09-13 12:30)